=== PATIENT | female | born 1970 | race Caucasian/White ===

== ENCOUNTER 2016-08-29 00:42 | Inpatient (IN) | payer OTHER ==
[2016-08-29] VITALS (16 sets, daily range): BP systolic 88–122; BP diastolic 51–72; PULSE 85–109; RESP 10–21; O2SAT 91–100
[~2016-08-29] VITALS: Ht 160 cm; Wt 70.8 kg
--- NOTE | 2016-08-29 01:04 | ED.REPORT ---
HPI-NVD Date of Service Aug 29, 2016 ED Provider: Dr. Logan Herrera MD A 46 year old female presents to the ED complaining of weakness that began one week ago. Associated symptoms include nausea, vomiting, left ear pressure, fatigue, subjective fever, diaphoresis, chills, diarrhea, myalgias, chest soreness, bilateral arm soreness, mild dyspnea and general malaise. Patient recently noticed a sore on her left breast that recently began to exhibit drainage. Her symptoms have become increasingly worse since onset. She denies dysuria. Patient denies history of MRSA, breast abnormalities or skin infections. Nursing Notes Stated Complaint: NAUSEA,FATIGUE,STOMACH PAINS Chief Complaint: Female Abdominal Pain Nursing Notes Reviewed: Yes ([employer] not reconciled) Allergies: Coded Allergies: No Known Allergies (Unverified , 08/29/16) General Time Seen by MD: 01:03 Chief Complaint Vomiting Hx Obtained From: Patient Arrived By: Walk-in Onset Occurred: 1 week ago Symptom Duration: Since onset Associated with: Reports: Fever (Subjective) Pertinent Negative: Pt denies other symptoms Recent Healthcare: No recent doctor visit, No recent hospitalization Past Medical History Past Medical History Notes: No PCP Past Medical History None reported. Past Surgical History None reported. Family History Denies: Cancer (Denies hx of breast cancer) Smoking History Current Every Day Smoker Social History Alcohol Use: "Social" Drug Use: Denies drug use Other Social History: Local resident Ambulatory Status Independent Review of Systems Constitutional: Reports: Chills, Fatigue, Fever, Malaise, Weakness - generalized, Denies: Recent wt loss (Not significant loss in past 3 months ) Ears / Nose / Throat: Reports: Earache left GI: Reports: Nausea, Vomiting Neurologic: Reports: Weakness, Denies: Change LOC Complete sys rev & neg: except as marked. Respiratory: Reports: Dyspnea on exertion, Denies: Shortness of breath Cardiovascular: Reports: Chest pain Female: Denies: Dysuria Musculoskeletal: Reports: Extremity pain (Bilateral arm soreness), Myalgia Physical Exam Initial Vital Signs Vital Signs (First) Date Time Temp Pulse Resp B/P Pulse Ox O2 Delivery O2 Flow Rate FiO2 08/29/16 00:47 36.4 109 16 118/72 96 Room Air Initial VS: Reviewed, Vital signs abnormal (tachy) Head / Eyes: Atraumatic, Normocephalic, PERRL Extremities: Vascular intact, Neuro intact, No swelling, No tenderness General/Constitutional: Awake, Alert GENERAL: Patient appears weak and fatigued Abdomen: Atraumatic, Soft, Non-tender ENT: Atraumatic, Airway patent Mouth: Positive: Mucous membranes dry Respiratory / Chest: Atraumatic, Breath sounds NL, Breath sounds = bilat, No crepitus CHEST: Left breast tender Cardiovascular: Regular rhythm, Heart sounds NL Heart Rate / Rhythm: Positive: Tachycardia Heart Sounds / Murmur: Negative: Murmur present... Skin: Atraumatic SKIN: area of open wound on the right breast (4cm) left breast is swollen, tender, erythematous with multiple bulla and areas of necrosis Purulent discharge with a foul smell No appreciated fluctuance but area is difficult without induration Differential diagnosis includes severe soft tissue infection versus infection. Interpretation & Diagnostics BREAST US Read by [facility] Radiology Mastitis versus inflammatory carcinoma in the right clinical setting. Mammographic correlation advised. No discrete loculated fluid collection or abscess seen. An irregular hypoechoic lesion noted on image 19, somewhat suspicious. Lab Results Interpretation Result Diagram: 08/29/16 0120 08/29/16 0120 Test 08/29/16 01:20 White Blood Count 23.8th/mm3 (3.8-10.1) Red Blood Count 4.09mil/mm3 (3.90-5.20) Hemoglobin 11.9g/dL (12.0-15.6) Hematocrit 33.6% (35.0-46.0) Mean Corpuscular Volume 82.2fL (81-100) Mean Corpuscular Hemoglobin 29.1pg (27.0-35.0) Mean Corpuscular Hemoglobin Concent 35.4% (32.0-37.0) Red Cell Distribution Width 13.3% (12.3-15.4) Platelet Count 319bil/L (150-400) Neutrophils (%) (Auto) 85% (40-74) Lymphocytes (%) (Auto) 6% (14-46) Monocytes (%) (Auto) 4% (4-12) Eosinophils (%) (Auto) 1% (0-5) Basophils (%) (Auto) 0% (0-3) Band Neutrophils % 4% (1-5) Sodium Level 131mEq/L (134-144) Potassium Level 4.9mEq/L (3.5-5.2) Chloride Level 91mEq/L (97-108) Carbon Dioxide Level 18mmol/L (18-29) Blood Urea Nitrogen 99mg/dL (6-24) Creatinine 5.87mg/dL (0.57-1.00) Estimat Glomerular Filtration Rate 11mL/min (>59) Glucose Level 116mg/dL (60-99) Lactic Acid Level 1.5mmol/L (0.4-2.0) Calcium Level 9.0mg/dL (8.5-10.1) Total Bilirubin 1.0mg/dL (0.0-1.2) Aspartate Amino Transf (AST/SGOT) 27U/L (0-50) Alanine Aminotransferase (ALT/SGPT) 23U/L (0-32) Alkaline Phosphatase 274U/L (25-150) Total Protein 7.4g/dL (6.4-8.4) Albumin 2.5g/dL (3.4-5.0) Lipase 89U/L (13-60) Human Chorionic Gonadotropin, Qual Negative (Negative) Lab Results Interpretation: CBC-severe leukocytosis CMP trace hyponatremia, severely elevated BUN/creatinine creatinine indicative of renal failure, potassium is normal, CO2 is normal, glucose is normal, alkaline phosphatase is elevated but other LFTs are normal Lactic acid is normal Wound culture from purulent material from left breast is pending Blood cultures 2 is pending is negative Albumen is low Lipase is marginally above the top limit of normal, but is nowhere near the threshold for pancreatitis ECG Interpretation ECG Interpretation: Normal sinus rhythm rate of 88, no acute ischemic changes, no findings of hyperkalemia Time: 03:23 Interpreted by: ED physician X-Ray Chest Interpretation Chest Xray Interpretation: IMPRESSION: Imaging limited No evidence of subcutaneous infection Interpretation / Wet Read by: Wet read ED physician CT Abd / Pelvis Interpretation IMPRESSION: Left breast tissues enlarged and edematous with irregular skin thickening and relative increase fibroglandular tissue. Nodular area noted in the interferomedial left breast. 1.5 cm on image 37/2 equivocal. No associated adenopathy. Small pleural effusions. Study type: Abdominal CT no contrast Interpretation / Wet Read by: Interpret - Radiologist Re-Eval/Medical Decision Med Decision/Clinical Course This is a 46-year-old female who denies any past medical history or active medications presented with a chief complaint of "feeling lousy" and having some nausea and vomiting, and having her left ear plugged. However in the triage room and was noted there was a foul smell, and drainage seem to be present from left breast, and on exam there was "concerns for a large soft tissue infection. She reports that this is been draining at her breast is been this way for the past week. She reports some pain, but again did not even complain out of it, and certainly does not have pain out of proportion. (Just the opposite, she has almost a sense of a neglect, or anosognosia.). She reports mild weight loss over sustained period time, but then denies significant weight loss in recent months. She denies grant fever. She reports loss of appetite. She reports a trace sense of some shortness of breath, although she is not visibly dyspneic, tachypnea, or hypoxic. On exam the patient appears completely exhausted and significantly ill. Mucous membranes seem dry, she is mildly cachectic. On exam the left breast is weeping fluid through multiple open wounds and is profoundly foul smelling. The entire breast is erythematous, there are bulla, and areas of possible necrosis. However there is no gross fluctuance to indicate clinically evident abscess, and no crepitus, and no pain up out of proportion. There is also not tenderness outside of the area of clear skin involvement. There is a 2-3 cm open wound on the right breast as well, but there is full involvement of almost the entire left breast. A wound culture was taken from some purulent drainage from the breast. The lungs are clear. She is mildly tachycardic, but I do not appreciate any murmurs. The abdomen is entirely soft and nontender. There is no edema or anasarca clinically evident. Overall this is a clinically ill patient who presents with surprisingly nonspecific complaints given the extensive tissue destruction that she is aware of the left breast, and it is quite dramatic on exam. The differential is extensive. Clinically there appears to be a component of soft tissue infection. The patient adamantly denies substance use, history o injection. She reports she does smoke, but states rare alcohol and no recreational drugs. The first concern is what appears to be a soft tissue infection. Given the extensive skin involvement, and the overall appearance of being moderately ill, aggressive antibiotics were initiated with soft tissue sepsis protocol-including clindamycin, meropenem, and vancomycin. The patient complained of some nausea, but again did not complain of any significant pain-but agreed to some pain medicine saying she does have some, when I offered. An ultrasound was performed, and reveals inflammatory changes consistent with infection, but no discrete abscess or drainable fluid collection. Labs and may reveal a severe leukocytosis, but also notable for severe renal failure. Given the patient's nausea fatigue, and the kind of semi-neglect or seeming lack of awareness regarding the severity of the breast infection, I suspect a component of uremia. She is not hyperkalemic. The tissue destruction evident on breast exam raise the question of necrotizing fasciitis-although again they are significant features that are very atypical- the patient reports this process has been in place for at least a week, slightly longer. This is perhaps the strongest argument against necrotizing fasciitis. There is no gas, there is no pain out of proportion. However, given the clinical exam findings, I did consult general surgery and the case discussed with Dr. Vazquez. He will follow the patient. He agrees with antibiotic coverage, and agrees with CT imaging given that malignancy is also highly in the differential. Given the renal failure, noncontrast CT imaging the chest abdomen and pelvis is then obtained. The patient is being admitted to the hospital. Nephrology consult is also being requested. Source of Hx: Old records (none in EMR) Re-Evaluation/Progress #1: Time of Eval: 01:12 Patient Status: Condition improved Re-Evaluation/Progress Note: Patient is rechecked. She is informed of the current treatment plan to obtain CT and US of her breast. Re-Evaluation/Progress #2: Time of Eval: 03:48 Patient Status: Condition improved Re-Evaluation/Progress Note: Patient is rechecked. She is informed of her lab results, US results and diagnosis. All questions are addressed. She understands and agrees with the treatment plan to admit. Consultation #1: Referral / Consult Name: Jory Enamorado DO Consulted With: Hospitalist Call Returned at: 03:41 Clin Nurse: Will see patient, Agrees with eval, Agrees with plan, Accepts admit Consultation #2: Referral / Consult Name: Marcel Vazquez MD Consulted With: Surgeon Call Returned at: 02:34 Clin Nurse: Agrees with eval, Agrees with plan Note: Dr. Vazquez agrees with plan to continue antibiotic treatment and plan to obtain a CT. Consultation #3: Referral / Consult Name: Martin Stroud DO Consulted With: Nephrology Call Returned at: 03:31 Clin Nurse: Agrees with armando, Agrees with plan Counseled Regarding: Diagnosis, Lab results, Need for admission Discharge & Departure Impression: Primary Impression: Infection of breast tissue Additional Impressions: Sepsis affecting skin Renal failure Disposition: ADMITTED TO HOSPITAL Discharge Condition All VS Reviewed: Yes Condition: Stable Referrals: NOPCP Crit Care Except Billable Proc Time Spent: 30-74 minutes Services Performed: Patient management by me, Time spent at bedside, Reviewing test results, Reviewing imaging, Discussing patient care, Documentation in record Scribe Attestation Portions of this note were transcribed by Mahnaz Boucher. I, Dr. Herrera personally performed the history, physical exam and medical decision-making; I reviewed and confirmed the accuracy of the information in the transcribed note. Signed by: Lashanda Garay, 08/29/16 0400. Logan Herrera MD Aug 29, 2016 01:04 MAHNAZ BOUCHER Aug 29, 2016 01:19
[2016-08-29] MEDS ORDERED: Vancomycin Dose per Pharmacist XX ONE ×2 (01:15→04:00)
[2016-08-29] MEDS ORDERED: Clindamycin Inj 900 MG in IV Premix 1 EACH IV ONE (01:15)
[2016-08-29] MEDS ORDERED: 0.9% Sodium Chloride 1,000 ML IV ONE (01:15)
[2016-08-29] MEDS ORDERED: Meropenem Inj 1,000 MG in 0.9% Sodium Chloride 100 ML IV ONE (01:15)
[2016-08-29] MEDS ORDERED: Ondansetron 2 mg/mL 2 mL Inj IVPUSH ONE (01:15)
[2016-08-29] MEDS ORDERED: TdaP Vaccine 0.5 mL Inj IM ONE (01:15)
[2016-08-29] MEDS: HYDROmorphone 0.5 mg/0.5 mL iSecure Syringe IVPUSH PRN ×4 (01:40→23:42)
[2016-08-29 01:47] LABS: Mean Corpuscular Hemoglobin 29.1 pg (27.0-35.0); Mean Corpuscular Volume 82.2 fL (81-100); Platelet Count 319 bil/L (150-400)
[2016-08-29 02:10] LABS: NEUTROPHILS % (AUTO) 85 % (40-74)
[2016-08-29 02:11] LABS: BASOPHILS % (AUTO) 0 % (0-3); EOSINOPHILS % (AUTO) 1 % (0-5); MONOCYTES % (AUTO) 4 % (4-12)
[2016-08-29] MEDS ORDERED: 0.9% Sodium Chloride 500 ML ONE (02:20)
[2016-08-29 02:26] LABS: Lipase 89 U/L (13-60)
[2016-08-29] MEDS ORDERED: Alum-Mag Hydrox-Simeth 30 mL Suspension PO PRN (03:50)
[2016-08-29] MEDS ORDERED: Ondansetron 2 mg/mL 2 mL Inj IVPUSH PRN ×3 (03:50→17:40)
[2016-08-29] MEDS ORDERED: Polyethylene Glycol (PEG) 17 Gm Powder PO PRN (04:00)
[2016-08-29] MEDS: 0.9% Sodium Chloride 1,000 ML IV SCH ×5 (04:03→23:36)
[2016-08-29 04:26] LABS: APPEARANCE,URINE HAZY (CLEAR,HAZY); COLOR,URINE DARK YELLOW (YELLOW); OCCULT BLOOD,URINE SMALL (NEGATIVE); PH,URINE 5.5 (5.0-8.0)
[2016-08-29 04:27] LABS: UROBILINOGEN,URINE NORMAL (NORMAL)
--- NOTE | 2016-08-29 05:51 | PCM.HPMED ---
Subjective Date of Service Aug 29, 2016 Primary Provider: Admitting Physician: Jory Enamorado DO Primary Care Physician: Chanel Attending Physician: Jory Enamorado DO Chief Complaint: Bilateral breast with wounds, nausea, fatigue History of Present Illness: Patient is a 46-year-old female with no reported significant past medical history presenting with a host of non-specific symptoms including chills, nausea , emesis, fatigue, sore throat and myalgias. Patient says the symptoms started several days ago and persisted. She felt worse today which prompted her to visit [facility] ED for further evaluation. In the ED, the patient was found to have significant soft tissue infection of the left breast with purulent and malodorous discharge. The patient reports the breast only started being painful and draining over the past few days. She reportedly did not notice any abnormalities prior. Her right breast also have a couple of open wounds but significantly less severe compared to the left. The patient endorses associated chest wall pain, headache, weakness, nausea, emesis, mild shortness of breath, and fatigue but otherwise denies diarrhea, constipation, dysuria, abdominal pain. The patient was also discovered to have lesions on her thighs bilaterally. The patient denies any illicit drug use or IV drug use. An ultrasound was performed and reveals inflammatory changes consistent with infection, but no discrete abscess or drainable fluid collection. CT chest, abdomen and pelvis shows edematous and enlarged left breast tissue with irregular skin thickening and increase fibroglandular tissue. The patient was started on meropenem, clindamycin and vancomycin in the ED. In the ED, vitals: temp 36.4, HR 109, RR 16 satting 96% on room air, BP 118/72. Notable labs: WBC 23.8, BUN 94, creatinine 5.87, alkaline phosphatase 274. Review of Systems: A comprehensive review of systems was conducted with the patient and found to be negative except as above in the History of Present Illness. Allergies Coded Allergies: No Known Allergies (Unverified , 08/29/16) Home Medications None reported PMH None reported Surgical History None reported Family History Mother and father both alive and well with unspecified arthropathy . 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 Hx Alcohol Use: Yes (OCCAS) Hx Substance Use: No Hx Tobacco Use: Yes Smoking Status: Current Every Day Smoker (Smokes 1PPD x 25 years) Exam Vital Signs Vital Sign - Last Date Time Temp Pulse Resp B/P Pulse Ox O2 Delivery O2 Flow Rate FiO2 08/29/16 03:43 97 Nasal Cannula 2 08/29/16 03:38 36.6 88 15 104/61 Intake and Output 08/28/16 08/28/16 08/29/16 Cumulative From/Thru 15:00 23:00 07:00 08/29/16 00:47 - 08/29/16 01:42 Intake Total 1000 ml 1000 ml Balance 1000 ml 1000 ml Intake IV Total 1000 ml 1000 ml Exam General: No acute distress, well-developed, well-nourished, appropriately interactive HEENT: Normocephalic, atraumatic. External ears without defect. Pupils equal, round, and reactive to light. Anicteric sclerae, moist conjunctivae, and no lid lag. Oropharynx free of erythema and cobble stoning. Mucosa pink but dry. Neck: Supple. No lymphadenopathy or thyromegaly. Cardiovascular: Regular rate and rhythm with no murmurs, rubs, or gallops appreciated Pulmonary: Clear to auscultation bilaterally with no crackles, wheezes, or rhonchi. Normal respiratory effort with no use of accessory muscles. Abdomen: Bowel tones present. Soft, nontender, nondistended. No hepatosplenomegaly or masses appreciated. Extremities: No clubbing, cyanosis, edema, or lymphadenopathy appreciated. Skin: Left breast with malodorous purulent discharge, erythema and areas of necrosis. Right breast with two erythematous, open wounds about 2-3cm; no palpable fluctuance. Bilateral thighs with erythematous, open wounds. Normal temperature, turgor, and texture. Neurological: Cranial nerves grossly intact. Psychiatric: Emotional. Alert and oriented to person, place, and time. Lab and Diagnostics Result Diagram: 08/29/16 0120 08/29/16 0120 X-Rays, CTs and MRIs Ultrasound breast - left Exam date: 08/29/2016 Impression: Mastitis vs inflammatory carcinoma in the right clinical setting. Mammographic correlation advised. No discrete loculated fluid collection or abscess seen. An irregular hypoechoic lesion noted on image 19, somewhat suspicious Radiologist: Yancy Lawrence MD ----- CT Chest abdomen and pelvis without IV contrast Exam date: 08/29/2016 Impression: Left breast tissues enlarged and edematous with irregular skin thickening and relative increase fibroglandular tissue. Nodular area noted in the inferomedial left breast, 1.5 cm on image 37/2, equivocal. No associated adenopathy. Small pleural effusions. Radiologist: Yancy Lawrence MD Assessment & Plan Patient is a 46-year-old female with no reported significant past medical history presenting with a host of non-specific symptoms including chills, nausea , emesis, fatigue, sore throat and myalgias. 1. Severe Sepsis. Present on admission. Active -Meets criteria with WBC (23.8), HR (109) with source of infection (bilateral breast) and evidence of organ dysfunction (creatinine 5.87) 2. Bilateral breast lesions. Present on admission. Active -Concerning for malignancy and infection -Cultures pending -Continue clindamycin, meropenem and vancomycin -Surgery to see patient -Will need ID consultation -Pain control with Tylenol, hydromorphone PRN 3. Acute kidney injury with uremia and likely encephalopathy. Present on admission. Active -BUN 99, Creatinine 5.8 -CT without evidence of obstruction -Uncertain etiology. Possibly multifactorial - decreased intake, sepsis -Avoid nephrotoxins -Nephrology to see patient 4. Elevated alkaline phosphatase, unknown acuity. Present on admission. Active -Uncertain etiology. Possibly gallbladder, if breast cancer present then concern for bone metastasis -CT chest, abdomen and pelvis reads "borderline right-sided hypodensity" of the liver; mild gallbladder distention -TSH, GGT pending -Follow with CMP 5. Bilateral thigh lesions. Present on admission. Active -Patient believes these are from shaving -Wound care Patient Status: Patient is admitted under inpatient status with expected length of stay greater than 2 midnights due to severity of presenting symptoms, risk of adverse event, and complexity of treatment plan. VTE Prophylaxis: SCDs Resuscitation Status: CPR: Attempt Resuscitation EdieJamel DO Aug 29, 2016 04:29
--- NOTE | 2016-08-29 06:31 | NUR ---
NEW ADMIT Pt sent up from ED with large left breast wound, sepsis, and acute kidney failure. Pt WBC 23.8, BUN 99, Creatinine 5.87. Vitals stable with BP 118/72, HR 109, SPO2 96% 2L NC due to IV Dilaudid causing her to desat, otherwise RA mid-high 90's. Pt stated a pain of 7/10 pain for the left breast, which is red, swollen, and weeping purulent drainage. Pt has no PMH. Pt has NS running @ 150ml/hr. Admission questions answered by pt. assessed wound to breast and pt is resting and waiting for more information.
[2016-08-29] MEDS: Sodium Chloride LOK Flush 10 mL Syringe IVFLUSH SCH ×2 (07:56→14:59)
[2016-08-29] MEDS ORDERED: fentaNYL-PF 50 mCg/mL 2 mL Inj ONE ×2 (09:13→17:20)
--- NOTE | 2016-08-29 09:22 | DRSVH ---
PROCEDURE: US BREAST COMPLETE, LEFT INDICATIONS: redness, swelling, wounds ?abscess TECHNIQUE: Real-time focused scanning was performed of the left breast, with image documentation. COMPARISON: None. FINDINGS: Edema present throughout the left breast and dilated ducts are noted. No abscess is seen. IMPRESSION: Soft tissue edema and skin thickening with dilated and indistinct ducts noted containing hypoechoic fluid with low level echoes suggestive of mastitis. Differential diagnosis include inflamm atory breast carcinoma. No abscess is seen. Note: These findings are concordant with the preliminary interpretation. Dictated by: Lisandro Sandhu Josh Interpreted: Beronica Tijerina MD on 08/29/2016 at 9:20 Transcribed by: LAYLA on 08/29/2016 at 9:22 Approved by: Beronica Tijerina M.D. on 08/29/2016 at 9:48
--- NOTE | 2016-08-29 09:23 | DRSVH ---
PROCEDURE: X-RAY CHEST ONE VIEW, PORTABLE ([id number]) INDICATIONS: CP TECHNIQUE: One view of the chest was acquired. COMPARISON: [facility], CT, CT CHEST ABD PELVIS WO CON, 08/29/2016, 3:15. FINDINGS: Surgical changes and devices: None. Lungs and pleura: No pleural effusions or pneumothorax. Air space opacity involves the left lung ba se.. Mediastinum: Mediastinal contours appear normal. Heart size is normal. Bones and chest wall: No suspicious bony lesions. Overlying soft tissues appear unremarkable. IMPRESSION: Left basilar atelectasis versus aspiration or pneumonia. Dictated by: Lisandro Sandhu RRA Interpreted: Beronica Tijerina MD on 08/29/2016 at 9:22 Transcribed by: LAYLA on 08/29/2016 at 9:23 Approved by: Beronica Tijerina M.D. on 08/29/2016 at 9:49
--- NOTE | 2016-08-29 09:41 | DRSVH ---
PROCEDURE: CT CHEST, ABDOMEN AND PELVIS WITHOUT CONTRAST ([id number]) INDICATIONS: Sepsis, left breast infection vs mass. TECHNIQUE: After the administration of oral contrast, 5 mm thick sections acquired from the lung apices to the s ymphysis pubis. 5 mm thick coronal and sagittal reformats acquired, with additional 7 mm coronal MIP reformats through the lungs. For radiation dose reduction, the following was used: automated expos ure control, adjustment of mA and/or kV according to patient size. COMPARISON: [facility], , US BREAST COMP LT, 08/29/2016, 2:32. FINDINGS: Image quality: Excellent. CHEST: Lungs and pleura: No acute pulmonary opacities. Trace right pleural effusion. Bibasilar atelectasis. No pneumothorax. Central and peripheral airways are patent are normal in caliber. Mediastinum: Heart size is normal. No pericardial effusion. No mediastinal adenopathy by CT size c riteria. Thoracic aorta and central pulmonary arteries are normal in size. Esophagus is normal in c aliber. No hiatal hernia. Chest wall: There is diffuse soft tissue edema skin thickening in the left breast and. No axillary o r supraclavicular adenopathy by size criteria. There is a 1 cm nodule in the right thyroid lobe. ABDOMEN: Solid organs: Liver and spleen are normal in size. Gallbladder is distended. Possible small gallsto diogo within the dependent gallbladder lumen. Pancreas is normal in contours. No adrenal nodules. Chaka th kidneys are normal in size, without hydronephrosis or nephrolithiasis. Peritoneum and bowel: Small and large bowel loops are normal in caliber and wall thickness. No free fluid or air. Nodes and vessels: No retroperitoneal or mesenteric adenopathy by size criteria. Aorta and inferior vena cava are normal in size. Miscellaneous: No ventral hernias. PELVIS: Genitourinary: Bladder wall thickness is normal. There is a 1 cm lucency in the lower uterine segme nt/cervix, probably a nabothian cyst. Ovaries are unremarkable. No pathological free fluid. Miscellaneous: No inguinal hernias or adenopathy. Bones: No suspicious bony lesions. No vertebral body compression fractures. IMPRESSION: 1. There is diffuse soft tissue edema and skin thickening of the left breast. Differential diagnosis include inflammatory breast cancer versus mastitis. Recommend clinical correlation follow. 2. Trace right pleural effusion. Bibasilar atelectasis. 3. A 1 cm right thyroid nodule. Recommend ultrasound followup. 4. ? Small gallstones. 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 Dictated by: Beronica Tijerina M.D. on 08/29/2016 at 9:30 Approved by: Beronica Tijerina M.D. on 08/29/2016 at 9:39
[2016-08-29] MEDS ORDERED: Clindamycin Inj 600 MG in IV Premix 1 EACH IV SCH (10:00)
[2016-08-29] MEDS ORDERED: DAPTOmycin Inj 500 MG in 0.9% Sodium Chloride 50 ML IV ONE (12:55)
[2016-08-29] MEDS: Meropenem Inj 1,000 MG in 0.9% Sodium Chloride 50 ML IV SCH ×2 (14:59→16:15)
[2016-08-29] MEDS ORDERED: Lactated Ringer's 1,000 ML IV ONE ×2 (16:04→17:53)
--- NOTE | 2016-08-29 16:04 | PCM.HPANE ---
Patient Data Surgeon Admitting Provider:Jory Enamorado DO Attending Provider:Jory Enamorado DO Primary Care Physician:Chanel Other Provider:Emilia Draper Anesthesia Reason for Visit Rt Breast Cellulitis,Sepsis, Nausea, Vomiting Ht/WT & BMI Height (Feet): 5 Height (Inches): 3.00 Weight (Kilograms): 70.800 Body Mass Index 0.00 Allergies Coded Allergies: No Known Allergies (Unverified , 08/29/16) Past Anesthesia History Anesthesia History: Denies:: Anesthesia Reactions Diabetes History Hx Diabetes?: No Current Bedside Blood Glucose: 70 MRSA MRSA: No Medications No Active Prescriptions or Reported Meds History History of ENT Problems?: No Hx of Heart Problems?: No Cardiovascular History: Denies:: Congestive Heart Failure Hypertension Hx of Respiratory Problem?: No Respiratory History: Denies:: Tuberculosis Hx Neurologic Problems?: No Hx of GI Problems?: No Hx of Problems?: No Female Hx: Positive for:: Problems with Breasts? (Wound to left breast) Denies:: Currently Hx Musculoskeletal Problems?: No Hx of Psycho/Social Problems?: Yes Psycho Social History: Positive for:: Anxiety Hx Depression Denies:: Bipolar Disorder Suicide Attempt Hx Surgeries?: No Hx Any Other Health Problems?: No Other History: Denies:: Cancer Hospitalization Thyroid Disease History Blood Transfusions: Positive for:: Accept Blood Products? 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 Category 1B: Patient has history of documented sleep apnea, and HAS received any narcotic , sedative or anesthesia administration during this stay Category 2: Patient has SUSPECTED Obstructive Sleep Apnea, and HAS received any narcotic , sedative or anesthesia administration during this stay. Category 3: Patient has SUSPECTED Obstructive Sleep Apnea and HAS NOT received narcotic, sedative or anesthesia administration during this stay. Category 4: Outpatient in Procedural Areas with known sleep apnea or who screen positive for High Risk via the STOP/BANG questionnaire. Exam Exam Vital Signs Vital Signs Date Time Temp Pulse Resp B/P Pulse Ox O2 Delivery O2 Flow Rate FiO2 08/29/16 14:10 37.8 102 16 88/51 92 Room Air 08/29/16 12:05 103 08/29/16 08:07 37.6 87 14 122/68 96 Room Air General Appearance: Alert, Oriented X3, Cooperative, No Acute Distress HEENT/AIRWAY: MP 2 Lungs: Clear to Auscultation, Normal Air Movement Heart: Exam Unremarkable, Regular Rate/Rhythm, No Murmurs/Rubs/Gallops Meds/Labs/Diagnostics Admission Meds Current Medications Sodium Chloride (Normal Saline) 1,000 ml @ 0 mls/hr Q0M ONCE IV Last administered on 08/29/16 01:39; Start 08/29/16 at 01:15; Stop 08/29/16 at 01:18; Status DC Ondansetron HCl (Zofran Inj) 8 mg ONCE ONCE IVPUSH Last administered on 01:39; Start 08/29/16 at 01:15; Stop 08/29/16 at 01:18; Status DC Pharmacy Consult 1 ea 1 ea ONCE ONCE XX Last administered on 08/29/16 02:48; Start 08/29/16 at 01:15; Stop 08/29/16 at 12:36; Status DC Clindamycin Phosphate/ Dextrose 900 mg/ Premix 50 ml @ 100 mls/hr ONCE ONCE IV Last administered on 08/29/16 01:15; Start 08/29/16 at 01:15; Stop 08/29/16 at 01:44; Status DC Meropenem 1000 mg/ Sodium Chloride 100 ml @ 200 mls/hr ONCE ONCE IV Last administered on 08/29/16 01:55; Start 08/29/16 at 01:15; Stop 08/29/16 at 01:44; Status DC Vancomycin HCl 1250 mg/Dextrose/ Water 250 ml @ 166.667 mls/hr ONCE ONCE IV Last administered on 08/29/16 02:40; Start 08/29/16 at 01:25; Stop 08/29/16 at 12: 36; Status DC Sodium Chloride 500 ml @ STK-MED ONCE .ROUTE Last administered on 08/29/16 02:33; Start 08/29/16 at 02:20; Stop 08/29/16 at 02:22; Status DC Sodium Chloride 1,000 ml @ 150 mls/hr Q6H40M IV Last administered on 08/29/16 10:40; Start 08/29/16 at 03:50; Stop 08/29/16 at 11:01; Status DC Meropenem 1000 mg/ Sodium Chloride 50 ml @ 16.667 mls/ hr DAILY IV Last administered on 08/29/16 14:59; Start 08/29/16 at 14:00 Clindamycin Phosphate/ Dextrose 600 mg/ Premix 50 ml @ 100 mls/hr Q8H IV Last administered on 08/29/16 10:41; Start 08/29/16 at 10:00; Stop 08/29/16 at 12:36; Status DC Daptomycin/Sodium Chloride (Cubicin Inj/ Normal Saline) 50.02 ml @ 100.04 mls/ hr ONCE ONCE IV Last administered on 08/29/16 14:58; Start 08/29/16 at 12:55; Stop 08/29/16 at 13:25; Status DC Bedside Blood Glucose: 70 Labs Test 08/29/16 01:20 08/29/16 04:19 08/29/16 06:10 08/29/16 13:40 White Blood Count 23.8th/mm3 (3.8-10.1) Red Blood Count 4.09mil/mm3 (3.90-5.20) Hemoglobin 11.9g/dL (12.0-15.6) Hematocrit 33.6% (35.0-46.0) Mean Corpuscular Volume 82.2fL (81-100) Mean Corpuscular Hemoglobin 29.1pg (27.0-35.0) Mean Corpuscular Hemoglobin Concent 35.4% (32.0-37.0) Red Cell Distribution Width 13.3% (12.3-15.4) Platelet Count 319bil/L (150-400) Neutrophils (%) (Auto) 85% (40-74) Lymphocytes (%) (Auto) 6% (14-46) Monocytes (%) (Auto) 4% (4-12) Eosinophils (%) (Auto) 1% (0-5) Basophils (%) (Auto) 0% (0-3) Band Neutrophils % 4% (1-5) Lactic Acid Level 1.5mmol/L (0.4-2.0) Total Bilirubin 1.0mg/dL (0.0-1.2) Aspartate Amino Transf (AST/SGOT) 27U/L (0-50) Alanine Aminotransferase (ALT/SGPT) 23U/L (0-32) Alkaline Phosphatase 274U/L (25-150) Total Protein 7.4g/dL (6.4-8.4) Albumin 2.5g/dL (3.4-5.0) Lipase 89U/L (13-60) Procalcitonin 7.44ng/mL (0.00-0.08) Thyroid Stimulating Hormone (TSH) 1.020uIU/mL (0.450-4.500) Human Chorionic Gonadotropin, Qual Negative (Negative) Urine Color Dark yellow (YELLOW) Urine Appearance Hazy (CLEAR,HAZY) Urine pH 5.5 (5.0-8.0) Urine Specific [place] 1.015 (1.003-1.035) Urine Protein 30mg/dL (NEG,TRACE) Urine Glucose (UA) Negativemg/dL (NEGATIVE) Urine Ketones Negativemg/dL (NEGATIVE) Urine Occult Blood Small (NEGATIVE) Urine Nitrite Negative (NEGATIVE) Urine Bilirubin Negative (NEGATIVE) Urine Urobilinogen Normalmg/dL (NORMAL) Urine Leukocyte Esterase Negative (NEGATIVE) Urine RBC 3-10/hpf (0-2) Urine WBC 6-10/hpf (0-5) Urine Epithelial Cells Few/hpf (NONE-MOD) Urine Crystals Amorphous urates (NONE Urine Bacteria None/hpf (NONE-FEW) Urine Hyaline Casts None/lpf (NONE) Urine Granular Casts None seen (NONE SEEN) Urine Waxy Casts None seen (NONE SEEN) Urine Red Blood Cell Casts None seen (NONE SEEN) Urine White Blood Cell Casts None seen (NONE SEEN) Urine Mucus None seen (None Seen) Urine Trichomonas None seen (NONE SEEN) Urine Yeast None (NONE SEEN) Urine Culture Reflexed Indicated Urine Random Creatinine 77mg/dL (15-278) Urine Random Total Protein 41mg/dL (0-15) Urine Random Sodium 0.53mEq/L Urine Opiates Screen Negative Urine Methadone Screen Negative Urine Barbiturates Screen Negative Urine Amphetamines Screen Positive Urine Benzodiazepines Screen Negative Urine Cocaine Metabolite Screen Negative Urine Cannabinoids Screen Negative Sodium Level 136mEq/L (134-144) Potassium Level 5.0mEq/L (3.5-5.2) Chloride Level 99mEq/L (97-108) Carbon Dioxide Level 16mmol/L (18-29) Blood Urea Nitrogen 90mg/dL (6-24) Creatinine 4.49mg/dL (0.57-1.00) Estimat Glomerular Filtration Rate 15mL/min (>59) Glucose Level 74mg/dL (60-99) Calcium Level 7.4mg/dL (8.5-10.1) Plan Impression Patient chart reviewed, patient interviewed and anesthestic plan with risks, benefits, and alternatives discussed, and informed consent obtained. ASA Physical Status: ASA3 Plus Emergency Anesthetic Plan: GA Bene/Risks/Altern/Consents: Yes HP Complete Prior to Induction: Yes Logan Srinivasan MD Aug 29, 2016 16:04
--- NOTE | 2016-08-29 17:31 | CONS ---
[address] [address] CONSULTATION REPORT PATIENT: PITER ENGLE : 1970 MR#: [id number] ADMIT: 08/29/2016 JOB ID: [id number] DATE OF SERVICE: 08/29/2016 REQUESTED BY: Nadeem Irizarry D.O. HISTORY OF PRESENT ILLNESS: A 46-year-old female who presented with four areas of cutaneous and subcutaneous infection. She came to the emergency department last night. She had extensive cellulitis of her left breast with several areas draining pus. She had a left breast ultrasound that showed no distinct abscess, and then a CT scan of her chest, abdomen and pelvis without contrast. This showed diffuse soft tissue edema and thickening of the skin of her left breast. She also has this a small area with an eschar in her right breast and on both anterior thighs. She denies "popping" but certainly this is consistent with that. She also is an everyday smoker. In addition to her soft tissue infection, she has developed acute renal failure with a creatinine of 5.87. She has a white count of almost 24,000. Her lactic acid was 1.5. She has been started on clindamycin and meropenem. I was consulted for surgical management. PAST MEDICAL HISTORY: Illnesses: None reported. Operations: None reported. HABITS: She denies parenteral substance abuse. She admits to every day smoking a pack a day and occasional alcohol. REVIEW OF SYSTEMS: Severe left breast pain. PHYSICAL EXAMINATION: Middle-age female, appearing very frightened but no distress. Temperature is 37.6, brachial blood pressure 122/68, pulse 87, respiratory rate 16, O2 sat on 2 L is 96%. HEENT: PERRLA. EOMI. No scleral icterus. Neck: No masses. Lymph nodes: I did not palpate any cervical or scalene adenopathy. Due to pain from her left breast, I was not able to examine her left axilla but will do so in the operating room. Left breast: She has significant desquamation and necrotic skin and subcutaneous tissue. The left breast is diffusely tender and erythematous. Because of the pain, I simply could not do what I consider an adequate exam. I do think that there are likely some sinus tracts extending into her breast. On her right breast, there is a small eschar without surrounding cellulitis. She has also eschars on her right and left anterior thighs without cellulitis. LABORATORY RESULTS: Please see history and physical examination. IMAGING STUDIES: Please see history and physical examination. RECOMMENDATIONS: I have recommended that we explore and debride her left breast in the operating room. I am certain I will do an incision and drainage and excisional debridement of skin and subcutaneous tissue. She is aware that resolution of this is likely to take many weeks. She is also aware she is likely to end up with deformity of her left breast. I think this is most likely infectious. I think it is not likely to be malignant, but I will send some tissue off for pathology as well. She agrees to proceed, and we will proceed today. Patient seen for decision to operate MTDD
[2016-08-29] MEDS ORDERED: Lactated Ringer's 1,000 ML IV SCH (17:37)
[2016-08-29] MEDS ORDERED: Lactated Ringer's 500 ML IV PRN (17:37)
[2016-08-29] MEDS ORDERED: MetoCLOpramide 5 mg/mL 2 mL Inj IVPUSH PRN (17:40)
[2016-08-29] MEDS ORDERED: hydrALAZINE 20 mg/mL Inj IVPUSH PRN (17:40)
[2016-08-29] MEDS ORDERED: Labetalol 5 mg/mL 4 mL Inj IV PRN (17:40)
[2016-08-29] MEDS ORDERED: Phenylephrine 10,000 mCg/mL Inj IVPUSH PRN (17:40)
[2016-08-29] MEDS ORDERED: EPHEDrine Sulfate 50 mg/mL Inj IVPUSH PRN (17:40)
[2016-08-29] MEDS ORDERED: Atropine 0.4 mg/mL Inj IVPUSH PRN (17:40)
[2016-08-29] MEDS ORDERED: HYDROmorphone 1 mg/mL Inj IVPUSH PRN (17:40)
[2016-08-29] MEDS ORDERED: fentaNYL-PF 50 mCg/mL 2 mL Inj IVPUSH PRN (17:40)
[2016-08-29] MEDS ORDERED: Dexamethasone 4 mg/mL Inj IVPUSH PRN (17:40)
--- NOTE | 2016-08-29 17:41 | PCM.ANEP1 ---
Post Anesthesia Phase 1 PACU Phase 1 Assessment Vital Signs Vital Signs Date Time Temp Pulse Resp B/P Pulse Ox O2 Delivery O2 Flow Rate FiO2 08/29/16 14:10 37.8 102 16 88/51 92 Room Air 08/29/16 12:05 103 Anesthetic Administered: GA Level of Alertness: Sleepy, easy to arouse HALL's with Equal Strength: Yes Pain: No Pain Scale Score: 0 Nausea or Vomiting: No Oxygen Delivery: Simple Mask Lungs: Clear to Auscultation, Normal Air Movement Dermatome Level: Full Sensation Logan Srinivasan MD Aug 29, 2016 17:41
--- NOTE | 2016-08-29 18:11 | PCM.ANEP2 ---
Post Anesthesia Evaluation ASA/CMS Post Anesthesia VS in Patient's Normal Range?: Yes Resp Stable; Airway Patent?: Yes CV Function & Hydration Stable: Yes Mental Status Recovered?: Yes Pain control Satisfactory?: Yes N/V Control Satisfactory?: Yes Logan Srinivasan MD Aug 29, 2016 18:11
--- NOTE | 2016-08-29 18:11 | PCM.PNMED ---
Subjective Date of Service Aug 29, 2016 Subjective Patient is a 46-year-old female with no reported significant past medical history presenting with a host of non-specific symptoms including chills, nausea , emesis, fatigue, sore throat and myalgias. In the ED, the patient was found to have significant soft tissue infection of the left breast with purulent and malodorous discharge. The patient reports the breast only started being painful and draining over the past few days. Today is hospital day 1. Today: She currently reports generalized aches and denies fever, chills, breast pain, nausea, vomiting, and abdominal pain. She has felt better since being admitted to the hospital. She states that she noticed a rash on her breasts 1 week ago and she thought that the rash was associated with a flu-like illness. She takes care of her disabled boyfriend who has a history of MRSA infections. 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 Exam Vital Signs Vital Sign - Last Date Time Temp Pulse Resp B/P Pulse Ox O2 Delivery O2 Flow Rate FiO2 08/29/16 12:05 103 08/29/16 08:07 37.6 14 122/68 96 Room Air 08/29/16 05:43 2.00 Intake and Output 08/28/16 08/28/16 08/29/16 Cumulative From/Thru 15:00 23:00 07:00 08/29/16 00:47 - 08/29/16 06:14 Intake Total 1608 ml 1608 ml Output Total 500 ml 500 ml Balance 1108 ml 1108 ml Intake Oral 0 ml 0 ml IV Total 1608 ml 1608 ml Output Urine Total 500 ml 500 ml Exam General: No acute distress, well-developed, well-nourished, appropriately interactive HEENT: Normocephalic, atraumatic. External ears without defect. Pupils equal, round, and reactive to light. Anicteric sclerae, moist conjunctivae, and no lid lag. Oropharynx free of erythema and cobble stoning. Mucosa pink but dry. Neck: Supple. No lymphadenopathy or thyromegaly. Cardiovascular: Regular rate and rhythm with no murmurs, rubs, or gallops appreciated Pulmonary: Clear to auscultation bilaterally with no crackles, wheezes, or rhonchi. Normal respiratory effort with no use of accessory muscles. Abdomen: Bowel tones present. Soft, nontender, nondistended. No hepatosplenomegaly or masses appreciated. Extremities: No clubbing, cyanosis, edema, or lymphadenopathy appreciated. Skin: Left breast with malodorous purulent discharge, diffuse erythema and areas of ulceration. Right breast with two erythematous, open wounds with eschars about 2-3cm; no palpable fluctuance. Bilateral thighs with symmetrical erythematous, open wounds with eschars about 3-4 cm; no palpable fluctuance. Normal temperature, turgor, and texture. Neurological: Cranial nerves grossly intact. Psychiatric: Emotional. Alert and oriented to person, place, and time. Genitourinary: Win catheter in place. IVs and Medications Medications Reviewed: Medications were reviewed in detail Lab and Diagnostics Result Diagram: 08/29/1611908/29/16 012 X-Rays, CTs and MRIs Ultrasound breast - left Exam date: 08/29/2016 Impression: Mastitis vs inflammatory carcinoma in the right clinical setting. Mammographic correlation advised. No discrete loculated fluid collection or abscess seen. An irregular hypoechoic lesion noted on image 19, somewhat suspicious Radiologist: Yancy Lawrence MD CT Chest abdomen and pelvis without IV contrast Exam date: 08/29/2016 Impression: Left breast tissues enlarged and edematous with irregular skin thickening and relative increase fibroglandular tissue. Nodular area noted in the inferomedial left breast, 1.5 cm on image 37/2, equivocal. No associated adenopathy. Small pleural effusions. Radiologist: Yancy Lawrence MD PROCEDURE: CT CHEST, ABDOMEN AND PELVIS WITHOUT CONTRAST IMPRESSION: 1. There is diffuse soft tissue edema and skin thickening of the left breast. Differential diagnosis include inflammatory breast cancer versus mastitis. Recommend clinical correlation follow. 2. Trace right pleural effusion. Bibasilar atelectasis. 3. A 1 cm right thyroid nodule. Recommend ultrasound followup. 4. ? Small gallstones. No significant discrepancy with the cage shift manager radiology preliminary report. Dictated by: Beronica Tijerina M.D. on 08/29/2016 at 9:30 Approved by: Beronica Tijerina M.D. on 08/29/2016 at 9:39 PROCEDURE: X-RAY CHEST ONE VIEW, PORTABLE IMPRESSION: Left basilar atelectasis versus aspiration or pneumonia. Dictated by: Lisandro Sandhu RR Interpreted: Beronica Tijerina MD on 08/29/2016 at 9:22 Transcribed by: LAYLA on 08/29/2016 at 9:23 Approved by: Beronica Tijerina M.D. on 08/29/2016 at 9:49 Assessment & Plan Patient is a 46-year-old female with no reported significant past medical history presenting with a host of non-specific symptoms including chills, nausea , emesis, fatigue, sore throat and myalgias. Today is hospital day 1. 1. Severe Sepsis. Present on admission. Active -Met criteria with WBC (23.8), HR (109) with source of infection (bilateral breast) and evidence of organ dysfunction (creatinine 5.87) -Patient is febrile 37.8 degrees Celsius -Procalcitonin elevated at 7.44 -Urinalysis shows negative nitrite, negative leukocyte esterase, and 6-10 white blood cells, 3-10 red blood cells -Blood and urine cultures pending -Chest x-ray shows left basilar atelectasis, possible aspiration or pneumonia and CT report shows bibasilar atelectasis 2. Bilateral breast lesions. Present on admission. Active -Left breast ultrasound and chest, abdomen, and pelvis CT performed -Concerning for malignancy and infection or inflammatory breast disease -Initial culture result shows rare polys and few gram-positive cocci -Continue IV antibiotics of clindamycin, meropenem and daptomycin per infectious disease -Surgery consulted and following patient, their time and recommendations are appreciated. -Patient has surgery today for debridement of her breasts. -Infectious disease consulted and following patient, their time and recommendations are appreciated. -Patient's urine is positive for amphetamines but denies IV drug use -HIV and hepatitis C pending -MRSA screen pending -Pain control with Tylenol, hydromorphone PRN 3. Acute kidney injury with uremia and likely encephalopathy. Present on admission. Active -Initial BUN 99, Creatinine 5.8 with mild improvement to BUN 90, Creatinine 4.49 -CT without evidence of obstruction -Uncertain etiology. Possibly multifactorial - decreased intake and sepsis -Avoid nephrotoxins -Patient on normal saline IV fluids at rate of 150 mL/hour -Nephrology consulted and following patient, their time and recommendations are appreciated. 4. Elevated alkaline phosphatase, unknown acuity. Present on admission. Active -Uncertain etiology. Possibly gallbladder, if breast cancer present then concern for bone metastasis -CT chest, abdomen and pelvis reads "borderline right-sided hypodensity" of the liver; mild gallbladder distention and possible small gallstones -Patient currently denies abdominal pain, nausea, and vomiting. -GGT pending -TSH within normal limits -Follow with CMP -Continue to monitor and consider further workup such as possible abdominal ultrasound to further evaluate her gallbladder and liver 5. Bilateral thigh lesions. Present on admission. Active -Patient believes these are from shaving -Likely, related to patient's breast lesions. -Wound care consulted and following patient, their time and recommendations are appreciated. -Antibiotics as above -Infectious disease consulted and following patient, their time and recommendations are appreciate. 6. Bibasilar atelectasis. Present on admission. Active. -Left basilar atelectasis seen on chest x-ray and bibasilar atelectasis and trace right pleural effusion seen on chest CT scan -Patient is currently receiving IV antibiotics as above -Continue to monitor 7. Tobacco dependence -Patient refused nicotine patch Bowel regimen senna and MiraLAX scheduled and when necessary. Zofran when necessary for nausea and vomiting Patient Status: Patient is admitted under inpatient status with expected length of stay greater than 2 midnights due to severity of presenting symptoms, risk of adverse event, and complexity of treatment plan. Disposition: Likely here for greater than 2 midnights. Dependent upon improvement of severe sepsis and further evaluation of breast lesions. VTE Prophylaxis: SCDs Resuscitation Status: CPR: Attempt Resuscitation Attending Statement The patient was seen and examined together with Dr. Fields on 08/29/2016 and I agree with the history, exam and plan as outlined in the note above. . Glenny Fields DO Aug 29, 2016 13:18 Nadeem Espinal MD Aug 29, 2016 20:31
--- NOTE | 2016-08-29 18:11 | NUR ---
LOC/Post Surgery Patient alert and oriented x3 throughout shift (pre and post surgery), very lethargic and drowsy. Patient slept throughout entire shift, would wake to light touch/minor stimulation, reported 5/10 pain throughout shift in left breast. SPO2 on RA ranged from 92-95%. No reports of n/v/d/c or abdominal pain. Patient febrile at 37.8 this afternoon. Dressing reviewed with Andreas Garcia post surgery, C/D/I with sports bra in place. Patient reports current 2/[address] draining pale ngozi urine to gravity, 1200 cc out.
--- NOTE | 2016-08-29 18:29 | CONS ---
[address] [address] CONSULTATION REPORT PATIENT: PITER ENGLE : 1970 MR#: [id number] ADMIT: 08/29/2016 JOB ID: [id number] DATE OF SERVICE: 08/29/[address] Jamel Irizarry for this consult. REASON FOR CONSULTATION: Severe bilateral left greater than right breast infection. HISTORY OF PRESENT ILLNESS: The patient is a 46-year-old woman who lives with her disabled boyfriend in [place], [place]. She reports unusual history in that she said she was in her usual state of robust good health until just "a few days ago." At that point, she developed a "flu-like" illness characterized by fever, chills, headache, questionable sore throat, nausea, vomiting and diarrhea. As this flu-like illness progressed for a day or two, she noticed inflammation, redness, tenderness and pain in her left breast which rapidly became very extensive. Less severe lesions were seen on the right breast as well as on both thighs. She denies any autoinoculation with needles nor any trauma to any of these areas and especially the most involved left breast. Associated with this rapid deterioration in the situation with her left breast, she reports more fever, more chills, drainage and generalized weakness. The patient eventually was taken to the emergency department last night where she was found to have an extraordinary inflammation of the left breast in particular with almost complete involvement of the left breast with draining, purulent, malodorous discharge. She adamantly denies that this problem with her breasts and for that matter her thighs has been going on more than a few days. She denies having had any similar or preceding history of soft tissue infections. The patient was emergently admitted because of the extraordinary nature of these lesions, especially involving the left breast, and was started on antibiotics which included vancomycin, clindamycin and meropenem. The patient is currently scheduled for debridement of the left breast to be conducted this afternoon by Dr. Lott. I spent a considerable period of time trying to elicit more history from the patient as it would appear to me that the lesions on the breast and perhaps on the thighs are more longstanding than she describes, and they are also of such incredible severity I am surprised that she did not come in much sooner. The patient sticks to her guns, however, and says that until just "a few days ago" everything was fine until she got a flu-like illness which then seemed to set off infections in both breasts and both thighs. PAST MEDICAL HISTORY: None known. The patient denies any history of HIV, chronic hepatitis, diabetes or cancer. SOCIAL HISTORY: The patient lives in [place] with her boyfriend. She reports he is disabled and a paraplegic and she helps to take care of him. She uses alcohol occasionally and cigarettes on an every day basis. She said she smokes at least one pack a day of cigarettes, sometimes more, and has done this for her entire adult life. She adamantly denies substance abuse when asked about this a number of times. FAMILY HISTORY: Her parents are alive and well. She denies any family history of breast cancer in her mother or aunts. She also denies any family history of TB in any family members including her parents and siblings. REVIEW OF SYSTEMS: Was done but was difficult as the patient replies "a little bit" to almost all questions. She reports that she has a bit of a headache, a minor pain behind the eyes, a mild sore throat. She does deny sinusitis or trouble swallowing. She states that she has had very little to eat and drink the last few days because of this progressive infection. She says she has a little bit of a cough but is not short of breath. No chest pain. She has had some abdominal pain, she states, along with some mild nausea, occasional vomiting and occasional diarrhea. She also states she has had some degree of mild dysuria, but no urgency, or frequency and, in fact, her urine output seems to have dropped the last couple days, by her report. She has no swelling of the joints though she reports she has had diffuse myalgias and arthralgias the last three days. She states she has been able to walk without difficulty until the last couple of days when she really got a lot worse with respect to her breast and has been more less bedridden since that time. The remainder of the review of systems is negative or nonspecific responses were obtained. PHYSICAL EXAMINATION: Reveals a woman who is awake and able to answer questions but appears depressed and with an extraordinarily flat affect. She is in no acute distress though she is protecting her left breast from any possible attempts to exam it. Temperature is 37.6 at this time and that is the highest during her 24 hours or so here in the hospital. Pulse 103, respiratory rate 14, blood pressure 122/68. She is saturating well on room air. Her head is without trauma. Her sinuses nontender. Eyes are notable for bilateral hemorrhagic or erythematous conjunctivitis. No scleral icterus. Nose normal. Oral cavity cracked and dry mucous membranes, but no thrush or pharyngitis. No hairy leukoplakia. The neck is without adenopathy and very supple. Lungs are clear, although it is difficult to examine the, on the left because of the incredible inflammation in her left breast. Cardiac tones: Regular rate and rhythm without murmur. The abdomen is soft and relatively nontender. The liver extends a couple centimeters below the right costal margin. There is no flank tenderness. The breasts are abnormal. The right breast has two about quarter-sized dried sites of inflammation which almost have an eschar on top of an erythematous base. The left though is extraordinary. It is double normal size, erythematous, cracked and fissured and extraordinarily angry-looking. This seems to involve almost the entire breast though a little area along the top is spared. It is so erythematous, tender and warm that it is almost impossible to examine this grossly involved left breast. The patient's external genitalia normal. She has a Win catheter. There is no evidence for synovitis in any of her joints. Muscles seem well-developed and nontender. The patient has symmetrical lesions in the midthigh bilaterally which appear like the ones on the right breast in that they have an eschar crust on top of what appears to have been an inflammatory lesion which is subsiding. She has excellent pulses in her feet and is intact neurologically. She can move all four extremities. She is certainly alert and oriented and has no skin rash except for the involvement mentioned in both breasts and both thighs. No adenopathy is noted. LABORATORIES: Include white count 24,000 with left shift, 85% segs. Her creatinine is 5.87. We have no prior values available. Her BUN is essentially 100, glucose 116. ALT and AST are normal but the alk phos is 274. Lipase is 89, slightly elevated, and albumin 2.5. Procalcitonin 7.4. Urine test negative. Urinalysis 6-10 white cells. Gram stain of the breast shows rare polys and a few GPC's. Culture is pending. Blood cultures are negative. Urine screen is pending. MRSA screen pending. IMAGING: Includes a chest x-ray which shows left basilar atelectasis. Breast ultrasound was done which showed thickened skin and indistinct ducts on the left breast consistent with mastitis. A CT of the chest, abdomen, and pelvis was done which showed soft tissue edema and skin thickening of the breast, a trace right pleural effusion was noted with bibasilar atelectasis and a thyroid nodule. 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 She reports that just over a few days she has developed this tremendously inflammatory process involving primarily the left breast but also to some degree the right breast and both thighs. She states that she was completely fine up until this and is in no way immunosuppressed. She also denies use of any injections of any sort for a list of purposes. This whole case and history are very hard to put together. It would appear at this point at a minimum the patient has an extremely severe soft tissue infection which is primarily present in the left breast. The likely organisms here would, of course, include staph and strep and the possibility of a necrotizing group A strep cannot be excluded at this point. I wonder if, in fact, there is some history of drug use or perhaps some underlying immunosuppression though this was denied during the history-taking. Aggressive debridement as well as broad-spectrum antibiotics will be needed. Part of the antibiotic regimen will have to include clindamycin in case this is a group A strep process. Given her acute renal failure, which is likely part and parcel of this ongoing process, I would like to avoid the use of vancomycin and will stop it and substitute daptomycin. Meropenem could be continued as broad-spectrum coverage for what is clearly a necrotizing soft tissue infection until we have a definitive diagnosis. RECOMMENDATIONS: 1. I have ordered a urine tox screen, HIV and hepatitis C. 2. I have also ordered an ASO titer. 3. We will drop the vancomycin and substitute daptomycin at a renally adjusted dose. 4. Will continue with renally adjusted meropenem. 5. I have increased the dose of clindamycin to 900 q.8 h. 6. We await the findings at surgery.
[2016-08-29] MEDS: Clindamycin Inj 900 MG in IV Premix 1 EACH IV SCH (18:41)
[2016-08-29] MEDS ORDERED: Ondansetron 2 mg/mL 2 mL Inj ONE (19:03)
[2016-08-29] MEDS ORDERED: Propofol 10,000 mCg/mL 20 mL Inj ONE (19:03)
[2016-08-30] MEDS: Sodium Chloride LOK Flush 10 mL Syringe IVFLUSH SCH ×3 (00:16→17:53)
--- NOTE | 2016-08-30 00:53 | OP ---
[address] [address] OPERATIVE REPORT PATIENT: PITER ENGLE : 1970 MR#: [id number] ADMIT: 08/29/2016 JOB ID: [id number] DATE OF SURGERY: 08/29/2016 PREOPERATIVE DIAGNOSIS(ES): Necrotizing left breast infection. POSTOPERATIVE DIAGNOSIS(ES): Necrotizing left breast infection. PROCEDURE: 1. Excisional debridement skin and subcutaneous tissue, left breast, 20 x 20 cm. 2. Incision and drainage of multiple subcutaneous abscesses. SURGEON: Pablito Lott MD. CLINICAL RESEARCH MANAGEMENT ASSOCIATE: Disha Aponte PA-C. INDICATIONS: A 46-year-old female who presented with sepsis and acute renal failure. She has a large necrotizing infection of her left breast with the skin of approximately half of the superior and lateral breast all necrotic. There was pus draining from the wound. She was started on broad-spectrum antibiotics. Her initial creatinine was 5.87. A repeat after some hydration and starting antibiotics is 4.49. Her potassium is 5.0. after discussing options with the patient, elected to proceed to the operating room for incision and drainage of multiple subcutaneous abscesses and excisional debridement of skin and subcutaneous tissue. FINDINGS: As stated above, the skin over the superior and lateral half of her breast was all necrotic. It basically formed an eschar. I excised that as well as some underlying fatty tissue and submitted both for culture, but also to Pathology. My overriding sense of this is that it is infectious and not neoplastic. There are numerous superficial thrombosed vessels and trapped within folds of fat were pools of pus, but after elevating and debriding sharply the skin and then irrigating it, the wound actually looked significantly better. DESCRIPTION OF PROCEDURE: At the beginning and end of the operation, the SCOAP checklist was completed. An LMA anesthetic was induced by Dr. Bg Srinivasan. Using Betadine, her left breast and upper extremity were prepped and draped in usual fashion. Photographs were taken. As stated above, the wound was 20 x 20 cm. Using scissors, I sharply debrided necrotic skin and subcutaneous tissue, and then also as stated above, tissue as well as possible were sent for culture and to Pathology. Hemostasis as necessary was achieved with cautery. I then thoroughly irrigated the wound with about a liter of saline. The wound was then covered with Adaptic, fluffs and ABDs, and a postoperative "bra" which opens in the front was then placed. The estimated blood loss was probably 50 cc. Specimens are as described above. There were no apparent complications. The final sponge, needle and instrument counts were announced as correct and she was returned to recovery room in stable condition. Critical assistance was provided by Disha Aponte PA-C.
[2016-08-30] MEDS: Clindamycin Inj 900 MG in IV Premix 1 EACH IV SCH ×3 (01:57→17:53)
--- NOTE | 2016-08-30 03:12 | CONS ---
[address] [address] CONSULTATION REPORT PATIENT: PITER ENGLE : 1970 MR#: [id number] ADMIT: 08/29/2016 JOB ID: [id number] DATE OF SERVICE: REQUESTING PHYSICIAN: Jory Enamorado DO. REASON FOR CONSULTATION: Management of abnormal kidney function. CHIEF COMPLAINT: Malaise. HISTORY OF PRESENT ILLNESS: This is a 46-year-old lady without significant past medical history who came in because of malaise. The symptoms started approximately one week prior to the admission. She reports having nausea, vomiting, fatigue, malaise, fever, poor appetite. She has noticed skin lesion and drainage with foul-smell discharge from the left breast. The patient reports having good health in general. She does not use any medications on regular basis. However, over the past one week, she has taken ibuprofen multiple times per day and each time she takes at least two pills. She reports having a poor appetite and some weight loss. The patient does not use any illicit drugs. She has not worked for at least five years. 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 Upon arrival, her initial vitals showed temperature of 36.4, pulse of 109, respiratory rate of 16, blood pressure 118/72. She had extensive workup for sepsis. Blood culture and urine culture was done as well as the wound culture from the left breast. CT of the chest, abdomen and pelvis without contrast was performed, apparently showed diffuse soft tissue edema and skin thickening of the left breast, differential diagnosis includes inflammatory breast cancer versus mastitis. The patient received IV vancomycin, clindamycin and meropenem overnight. Infectious Disease physician and general surgeon were consulted for further management. Kidney-moncada, patient is not aware of having kidney disease. Her initial blood work showed a BUN of 99, creatinine of 5.87. The initial workup did not show any evidence of hydronephrosis. CAT scan showed normal kidney size without nephrolithiasis or hydronephrosis. The patient received IV fluid overnight. Her current fluid is normal saline run at 150 cc/hour. PAST MEDICAL HISTORY: None. SURGICAL HISTORY: None. FAMILY HISTORY: No kidney disease in the family. No cancer in the family.. SOCIAL HISTORY: She is an active smoker. She smokes one pack per day for at least 25 years. She is unemployed. She takes care of her disabled boyfriend. ALLERGIES: No known drug allergies. MEDICATIONS: Ibuprofen 2-3 pills every 4-6 hours over the past one week or so. REVIEW OF SYSTEMS: A 14-point review of systems was performed. PHYSICAL EXAMINATION: Vitals: Temperature 36.6, pulse 88, respiratory rate 15, blood pressure 104/61, O2 sat 97% on 12 L nasal cannula. General appearance: Awake, alert, oriented x3. In on acute distress. Malaise. HEENT: No pallor. No jaundice. No JVD. No lymphadenopathy. No thyroid enlargement. Atraumatic. Dry mucous membranes. Neck is supple. No lymphadenopathy, no thyroid enlargement. Heart: Regular rhythm. Normal S1, S2. No murmurs, rubs or gallops. Tachycardic. Lungs: Clear to auscultation bilaterally. No wheezing. No rhonchi. Breasts: Positive open wound on the right breast, measures 1 x 1 cm, multiple open wounds on the left breast measures 2 x 2 cm with foul smell discharge, purulent discharge noted. Abdomen: Soft, nontender, nondistended. No hepatosplenomegaly. Extremities: No edema, cyanosis or clubbing of fingers. Lower extremity positive for open wound noted on both thigh measures 2 x 2 cm. No active bleeding or discharge. LABORATORIES: Sodium 131, potassium 4.9, chloride 91, bicarb 18, BUN 99, creatinine 5.87. Hemoglobin 11.9, WBC 23.8, platelets 319. UA: Specific gravity 1.015, protein 30, RBC 3-10, WBCs 6-10, urine creatinine 77, urine protein 41. CT chest, abdomen and pelvis showed diffuse soft tissue edema and skin thickening of the left breast, differential diagnosis includes inflammatory breast cancer versus mastitis, trace right pleural effusion, bilateral atelectasis, 1 cm right thyroid nodule, small gallstones. Breast ultrasound showed soft tissue edema, skin thickening with dilated and indistinct duct noted containing hypoechoic fluid with low level echoes suggestive of mastitis. Chest x-ray showed left basilar atelectasis versus aspiration or pneumonia. ASSESSMENT: 1. Acute kidney injury, unknown baseline serum creatinine. She came in with a BUN of 99, creatinine of 5.87. Her initial urine showed mild proteinuria with urine protein creatinine ratio of 0.53, mild hematuria, of note the patient had Win catheter placement. She came in with the complaint of malaise, weakness, nausea, vomiting and discharge from the left breast. Of note, she has been taking ibuprofen over the past week. The etiology of acute kidney injury at this point could be due to acute tubular necrosis from ongoing infection, nonsteroidal anti-inflammatory drugs and ischemic acute tubular necrosis from hypotension and poor oral intake. However, we need to rule out underlying disease of vasculitis given the active urine sediment. I will order a hepatitis profile, FRENCH, ANCA, anti-GBM antibody, complement 3, complement 4. HIV has been ordered and results pending. 2. Hyperkalemia. 3. Left breast skin and soft tissue infection, differential diagnosis: infection and inflammatory malignancy. 4. Hypoalbuminemia and elevation of alkaline phosphatase. 5. Multiple open wounds noted on the right breast, bilateral lower extremities. PLAN: At this point, we will continue supportive treatment. No urgent dialysis indicated. I would like to avoid giving vancomycin since she already in severe renal insufficiency. We will continue hydrating the patient with normal saline running at 150 cc/hour. As mentioned earlier, will also order vasculitis workup including FRENCH, ANCA, complement 3, complement 4, anti-GBM, hepatitis panel and HIV. I will repeat another UA in the morning to follow up on urine sediment. We need to avoid giving her any nephrotoxins. No NSAID use. No IV contrast. Thank you for the consultation. We will monitor along with you. MTDD
[2016-08-30 03:39] VITALS: BP 97/57; PULSE 86; RESP 16; O2SAT 96
[2016-08-30 04:11] LABS: Mean Corpuscular Hemoglobin 29.3 pg (27.0-35.0); Mean Corpuscular Volume 82.8 fL (81-100); Platelet Count 254 bil/L (150-400)
[2016-08-30 04:29] LABS: Phosphorus 6.8 mg/dL (2.5-4.9)
[2016-08-30 04:37] LABS: BASOPHILS % (AUTO) 1 % (0-3); EOSINOPHILS % (AUTO) 2 % (0-5); MONOCYTES % (AUTO) 6 % (4-12); NEUTROPHILS % (AUTO) 84 % (40-74)
[2016-08-30] MEDS: HYDROmorphone 0.5 mg/0.5 mL iSecure Syringe IVPUSH PRN (06:28)
--- NOTE | 2016-08-30 06:42 | NUR ---
pain pt c/o pain in her left breast/chest/back area, IV 0.5mg dilaudid given x2 with good relief, repostiting pt in bed to help with back pain, dsg in take still.
[2016-08-30] MEDS: 0.9% Sodium Chloride 1,000 ML IV SCH ×2 (07:33→13:33)
[2016-08-30 08:26] VITALS: BP 97/51; PULSE 96; RESP 18; O2SAT 91
[2016-08-30] MEDS: Meropenem Inj 1,000 MG in 0.9% Sodium Chloride 50 ML IV SCH (08:53)
[2016-08-30 10:04] VITALS: PULSE 92
--- NOTE | 2016-08-30 11:20 | PROG NOTE ---
[address] [address] PROGRESS NOTE PATIENT: PITER ENGLE : 1970 MR#: [id number] ADMIT: 08/29/2016 JOB ID: [id number] DATE: 08/30/2016 INFECTIOUS DISEASE FOLLOW UP NOTE: REASON FOR FOLLOWUP: Necrotizing left breast infection with less severe infection of right breast and bilateral mid thigh. INTERVAL HISTORY: Overnight, the patient reports she has been free of fevers and chills. She states her left breast pain has subsided considerably after the debridement by Dr. Lott which was performed yesterday. She has no significant cough, shortness of breath or chest pain. She states she has some episodic right upper quadrant pain which has not been severe. No nausea, vomiting, or diarrhea. No new skin lesions. We again reviewed her drug history and she denied the use of meth or any injections into her breast or thighs. PHYSICAL EXAMINATION: Reveals a more comfortable woman than yesterday when she appeared quite ill. She is sitting up and more lucid today. She has a large dressing present over her left breast from her debridement yesterday. She has been afebrile. Temperature now 37.3, pulse 92, respiratory rate 18, blood pressure 97/51, saturating 91% on room air. The patient is awake and lucid. Oral cavity negative. No pharyngitis. Lungs clear. Cardiac tones without murmur and regular. Left breast as mentioned is heavily bandaged and there is a bra holding the dressings all in place so I did not remove it. Abdomen: Soft and nontender including the right upper quadrant. The lower extremities are notable for their symmetrical lesions in both mid thighs which are about 2 cm round, erythematous lesions with a central area of eschar. LABORATORIES: Include a white count which is 21,000 today down from 23 yesterday. Still with left shift, including metamyelocytes and myelocytes. Platelets stable 254. Creatinine 3.29 which is improved from yesterday's 4.49. GGT is 254 and alk phos 379, both quite elevated. AST and ALT are normal. Albumin 2.1. Procalcitonin yesterday 7.4, not repeated today. Urine tox screen was positive for amphetamines which the patient adamantly denies using. HIV and hep C negative. Streptozyme positive at 264. One of four admission blood cultures is growing a gram-negative catherine which appears to be Proteus and will have susceptibilities tomorrow. Gram stains from the breast have consistently showed gram-positive cocci and we await potential growth of those cultures. IMAGING: The CT of the abdomen and pelvis showed small gallstones and a distended gallbladder. IMPRESSION: This is a bit of a confusing case of a woman who presents with bilateral breast and thigh infections. One would think this would all be secondary to injection as there is little other explanation for a completely symmetrical set of infections such as this, but the patient adamantly denies it. She also denies using meth but has a positive tox screen for amphetamine. In any event, the patient had a necrotizing infection of the left breast that was debrided by Dr. Lott yesterday and I have discussed this procedure in detail with him. We have evidence that strep are involved as she has a positive ASO titer and we also have Gram stains, both pre and during the debridement, which showed GPCs confusingly, we also have gram-negative rods in her blood which do not seem to make much sense in terms of what is going on with her left breast. Her LFTs are elevated suggesting a cholestatic hepatitis or gallbladder process, however, and I wonder if she could have acalculous cholecystitis with bacteremia in addition to whatever is going on in her left breast. RECOMMENDATIONS: 1. Continue with current broad antibiotics which include high-dose clindamycin IV, daptomycin IV and meropenem. 2. Right upper quadrant ultrasound has been ordered. to better evaluate the possibility of acalculous or calculous cholecystitis as a cause of her bacteremia. 3. We await the results of the urine culture but this has been negative and her urinalysis did not show any significant pyuria so I do not think that the Proteus is secondary to urinary tract infection, though again, the urine culture will be the final determinate on that. Note this case discussed in detail both yesterday afternoon and this morning with Dr. Lott of General Surgery.
--- NOTE | 2016-08-30 11:43 | PCM.PNMED ---
Subjective Date of Service Aug 30, 2016 Subjective Patient is a 46-year-old female with no reported significant past medical history presenting with a host of non-specific symptoms including chills, nausea , emesis, fatigue, sore throat and myalgias. In the ED, the patient was found to have significant soft tissue infection of the left breast with purulent and malodorous discharge. The patient reports the breast only started being painful and draining over the past few days. Today is hospital day 2. Today: She states that she is feeling better today than yesterday. She has left flank pain. Her breast pain is well controlled right now. She denies fever, chills, cough, abdominal pain, nausea, vomiting, or diarrhea. She denies history of abdominal pain after meals. Pt reports that she has taken Adderall in the past but not recently and denies any illicit drug use. She reports a history of being homeless in the past. Exam Vital Signs Vital Sign - Last Date Time Temp Pulse Resp B/P Pulse Ox O2 Delivery O2 Flow Rate FiO2 08/30/16 10:04 92 08/30/16 08:26 37.3 18 97/51 91 Room Air 08/30/16 03:39 2.00 Intake and Output 08/29/16 08/29/16 08/30/16 Cumulative From/Thru 15:00 23:00 07:00 08/29/16 00:47 - 08/30/16 06:32 Intake Total 2081 ml 2018 ml 5707 ml Output Total 1650 ml 2150 ml Balance 2081 ml 368 ml 3557 ml Intake Oral 300 ml 300 ml IV Total 2081 ml 1718 ml 5407 ml Output Urine Total 1650 ml 2150 ml Exam General: No acute distress, well-developed, well-nourished, appropriately interactive HEENT: Normocephalic, atraumatic. External ears without defect. Pupils equal, round, and reactive to light. Anicteric sclerae, moist conjunctivae, and no lid lag. Oropharynx free of erythema and cobble stoning. Mucosa pink but dry. Neck: Supple. No lymphadenopathy or thyromegaly. Cardiovascular: Regular rate and rhythm with no murmurs, rubs, or gallops appreciated Pulmonary: Clear to auscultation bilaterally with no crackles, wheezes, or rhonchi. Normal respiratory effort with no use of accessory muscles. Abdomen: Mild abdominal tenderness in right upper quadrant. Bowel tones present. Soft, nondistended. No hepatosplenomegaly or masses appreciated. Extremities: No clubbing, cyanosis, edema, or lymphadenopathy appreciated. Skin: Left and right breast wound dressing intact without any visible drainage on bandage. Bilateral thighs with symmetrical mild erythematous, open wounds with eschars about 3-4 cm; no palpable fluctuance. Mild improvement of erythema of bilateral thigh lesions compared to yesterday. Normal temperature, turgor, and texture. Neurological: Cranial nerves grossly intact. Psychiatric: Emotional. Alert and oriented to person, place, and time. Genitourinary: Win catheter in place. IVs and Medications Medications Reviewed: Medications were reviewed in detail Lab and Diagnostics Result Diagram: 08/30/1639908/30/16399 X-Rays, CTs and MRIs Ultrasound breast - left Exam date: 08/29/2016 Impression: Mastitis vs inflammatory carcinoma in the right clinical setting. Mammographic correlation advised. No discrete loculated fluid collection or abscess seen. An irregular hypoechoic lesion noted on image 19, somewhat suspicious Radiologist: Yancy Lawrence MD CT Chest abdomen and pelvis without IV contrast Exam date: 08/29/2016 Impression: Left breast tissues enlarged and edematous with irregular skin thickening and relative increase fibroglandular tissue. Nodular area noted in the inferomedial left breast, 1.5 cm on image 37/2, equivocal. No associated adenopathy. Small pleural effusions. Radiologist: Yancy Lawrence MD PROCEDURE: CT CHEST, ABDOMEN AND PELVIS WITHOUT CONTRAST IMPRESSION: 1. There is diffuse soft tissue edema and skin thickening of the left breast. Differential diagnosis include inflammatory breast cancer versus mastitis. Recommend clinical correlation follow. 2. Trace right pleural effusion. Bibasilar atelectasis. 3. A 1 cm right thyroid nodule. Recommend ultrasound followup. 4. ? Small gallstones. 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 Approved by: Beronica Tijerina M.D. on 08/29/2016 at 9:39 PROCEDURE: X-RAY CHEST ONE VIEW, PORTABLE IMPRESSION: Left basilar atelectasis versus aspiration or pneumonia. Approved by: Beronica Tijerina M.D. on 08/29/2016 at 9:49 Assessment & Plan Patient is a 46-year-old female with no reported significant past medical history presenting with a host of non-specific symptoms including chills, nausea , emesis, fatigue, sore throat and myalgias. Today is hospital day 1. 1. Severe Sepsis. Present on admission. Active -Met criteria with WBC (23.8), HR (109) with source of infection (bilateral breast) and evidence of organ dysfunction (creatinine 5.87) -Patient was febrile 37.8 degrees Celsius yesterday -Procalcitonin elevated at 7.44 -Urinalysis shows negative nitrite, negative leukocyte esterase, and 6-10 white blood cells, 3-10 red blood cells -Blood culture shows gram negative rods, probable proteus -Urine culture no growth at this point -Chest x-ray shows left basilar atelectasis, possible aspiration or pneumonia and CT report shows bibasilar atelectasis -Breast abscess and breast culture have grown beta Streptococcus group A -Continue IV antibiotics of clindamycin, meropenem, and daptomycin per infectious disease -Win discontinued today (08/30/2016) 2. Bilateral breast lesions. Present on admission. Active -Left breast ultrasound and chest, abdomen, and pelvis CT performed -More likely infectious etiology than malignancy -Breast abscess culture and breast culture have grown beta Streptococcus group A -Surgery consulted and following patient, their time and recommendations are appreciated. -Patient had surgery yesterday for debridement of her breasts. -Infectious disease consulted and following patient, their time and recommendations are appreciated. -Patient's urine is positive for amphetamines but denies IV drug use. Pt reports history of taking Adderall but denies illicit drug use. -HIV and hepatitis C negative -MRSA screen pending -Pain control with PO Tylenol and PO [place] 5 mg/325 mg -Continue IV antibiotics of clindamycin, meropenem and daptomycin per infectious disease 3. Acute kidney injury with uremia. Present on admission. Active -Initial BUN 99, Creatinine 5.8 with mild improvement to BUN 77, Creatinine 3.29 -CT without evidence of obstruction -Uncertain etiology. Possibly multifactorial - decreased intake and sepsis and recent increased NSAID intake -Avoid nephrotoxins -Patient on normal saline IV fluids at rate of 150 mL/hour -Nephrology consulted and following patient, their time and recommendations are appreciated. -Streptozyme elevated 4. Bacteremia -Blood culture has grown gram negative rods, likely Proteus -Etiology unknown. Likely related to breast lesions. Breast lesion cultures grew both Streptococcus and gram negative rods. Urine culture shows no growth today -Antibiotics as above 5. Elevated alkaline phosphatase, unknown acuity. Present on admission. Active -Uncertain etiology, possible breast malignancy bone metastasis, gallbladder or liver etiology -CT chest, abdomen and pelvis reads "borderline right-sided hypodensity" of the liver; mild gallbladder distention and possible small gallstones. Abdominal ultrasound shows normal gallbladder -Patient currently denies abdominal pain, nausea, and vomiting. -GGT and total bilirubin elevated -TSH within normal limits -Follow with complete metabolic panel -Abdominal ultrasound performed and preliminary report shows normal gallbladder 6. Bilateral thigh lesions. Present on admission. Improving -Patient believes these are from shaving -Likely, related to patient's breast lesions. -Wound care consulted and following patient, their time and recommendations are appreciated. -Antibiotics as above -Infectious disease consulted and following patient, their time and recommendations are appreciate. 7. Bibasilar atelectasis. Present on admission. Active. -Left basilar atelectasis seen on chest x-ray and bibasilar atelectasis and trace right pleural effusion seen on chest CT scan -Patient is currently receiving IV antibiotics as above -Continue to monitor 8. Tobacco dependence -Continue nicotine patch 9. Positive urine amphetamine -Patient's urine is positive for amphetamines but denies IV drug use. Pt reports history of taking Adderall but denies illicit drug use. Patient started on general diet today. Bowel regimen senna and MiraLAX scheduled and when necessary. Zofran when necessary for nausea and vomiting Patient Status: Patient is being transferred to [facility] for necrotizing infection of breast tissue. Dr. Pablito Lott coordinated the transfer. Accepting physician is Dr. Sadiq Stearns in the surgical service. VTE Prophylaxis: SCDs VTE Mechanical Devices: Intermittant Pneumatic CD Resuscitation Status: CPR: Attempt Resuscitation Attending Statement The patient was seen and examined together with Dr. Fields on 08/30/2016 and I agree with the history, exam and plan as outlined in the note above. . Glenny Fields DO Aug 30, 2016 11:43 Nadeem Espinal MD Aug 31, 2016 08:39 Glenny Fields DO Aug 30, 2016 11:43
--- NOTE | 2016-08-30 11:45 | PCM.PNMED ---
Subjective Date of Service Aug 30, 2016 Subjective She has felt slightly better today with less pain on her left breast. She remains feeling weak and poor appetite. s/p left breast I&D yesterday. Exam Vital Signs Vital Sign - Last Date Time Temp Pulse Resp B/P Pulse Ox O2 Delivery O2 Flow Rate FiO2 08/30/16 10:04 92 08/30/16 08:26 37.3 18 97/51 91 Room Air 08/30/16 03:39 2.00 Intake and Output 08/29/16 08/29/16 08/30/16 Cumulative From/Thru 15:00 23:00 07:00 08/29/16 00:47 - 08/30/16 06:32 Intake Total 2081 ml 2018 ml 5707 ml Output Total 1650 ml 2150 ml Balance 2081 ml 368 ml 3557 ml Intake Oral 300 ml 300 ml IV Total 2081 ml 1718 ml 5407 ml Output Urine Total 1650 ml 2150 ml Exam General appearance: Awake, alert, oriented x3. In on acute distress. Malaise. HEENT: No pallor. No jaundice. No JVD. No lymphadenopathy. No thyroid enlargement. Atraumatic. Dry mucous membranes. Neck is supple. No lymphadenopathy, no thyroid enlargement. Heart: Regular rhythm. Normal S1, S2. No murmurs, rubs or gallops. Lungs: Clear to auscultation bilaterally. No wheezing. No rhonchi. Breasts: Dressing packed into left breast, wearing bra. Abdomen: Soft, nontender, nondistended. No hepatosplenomegaly. Extremities: No edema, cyanosis or clubbing of fingers. Lower extremity positive for open wound noted on both thigh measures 2 x 2 cm. No active bleeding or discharge. Lab and Diagnostics Result Diagram: 08/30/16 0400 08/30/16 0400 X-Rays, CTs and MRIs Ultrasound breast - left Exam date: 08/29/2016 Impression: Mastitis vs inflammatory carcinoma in the right clinical setting. Mammographic correlation advised. No discrete loculated fluid collection or abscess seen. An irregular hypoechoic lesion noted on image 19, somewhat suspicious Radiologist: Yancy Lawrence MD CT Chest abdomen and pelvis without IV contrast Exam date: 08/29/2016 Impression: Left breast tissues enlarged and edematous with irregular skin thickening and relative increase fibroglandular tissue. Nodular area noted in the inferomedial left breast, 1.5 cm on image 37/2, equivocal. No associated adenopathy. Small pleural effusions. Radiologist: Yancy Lawrence MD PROCEDURE: CT CHEST, ABDOMEN AND PELVIS WITHOUT CONTRAST IMPRESSION: 1. There is diffuse soft tissue edema and skin thickening of the left breast. Differential diagnosis include inflammatory breast cancer versus mastitis. Recommend clinical correlation follow. 2. Trace right pleural effusion. Bibasilar atelectasis. 3. A 1 cm right thyroid nodule. Recommend ultrasound followup. 4. ? Small gallstones. 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 Dictated by: Beronica iTjerina M.D. on 08/29/2016 at 9:30 Approved by: Beronica Tijerina M.D. on 08/29/2016 at 9:39 PROCEDURE: X-RAY CHEST ONE VIEW, PORTABLE IMPRESSION: Left basilar atelectasis versus aspiration or pneumonia. Dictated by: Lisandro Sandhu RRA Interpreted: Beronica Tijerina MD on 08/29/2016 at 9:22 Transcribed by: LAYLA on 08/29/2016 at 9:23 Approved by: Beronica Tijerina M.D. on 08/29/2016 at 9:49 Assessment & Plan 1. Acute kidney injury, h/o NSAIDs use over the past week. - (+) active urine sediments. - DDx: ATN due to sepsis and NSAIDs. vasculitic w/u sent, pending results. 2. Hyperkalemia, resolved. 3. Left breast skin and soft tissue infection s/p I&D on 08/29. Gram stain ( +) GPC. 4. GNR bacteremia 5. Hyperphosphatemia due to LIZZIE. will monitor for now. corrected serum calcium 9.4 6. Hypoalbuminemia and elevation of alkaline phosphatase. 7. Multiple open wounds noted on the right breast, bilateral lower extremities. 8. Positive amphetamine from urine tox screen. PLAN: continue supportive treatment. continue NS 150 ml/hr. IV abx as per Dr. Gross. Repeat UA. Avoid nephrotoxins, adjust all meds accordingly to GFR. VTE Prophylaxis: SCDs VTE Mechanical Devices: Intermittant Pneumatic CD Resuscitation Status: CPR: Attempt Resuscitation Kulwinder Vincent MD Aug 30, 2016 11:45
[2016-08-30] MEDS ORDERED: HYDROcodone-APAP 5-325 mg Tablet PO PRN (12:05)
[2016-08-30 12:09] VITALS: BP 102/56; PULSE 94; RESP 18; O2SAT 93
--- NOTE | 2016-08-30 12:16 | DRSVH ---
PROCEDURE: US ABDOMEN, LIMITED ([id number]) INDICATIONS: possible small gallstones on CT, right flank pain TECHNIQUE: Real-time focused scanning was performed of the abdomen, with image documentation. COMPARISON: [facility], CT, CT CHEST ABD PELVIS WO CON, 08/29/2016, 3:15. FINDINGS: Limited examination demonstrates normal appearance of the gallbladder, specifically no visi ble gallstones seen. IMPRESSION: Normal gallbladder. Dictated by: Lisandro SMITH Interpreted: Beronica Tijerina MD on 08/30/2016 at 12:15 Transcribed by: LAYLA on 08/30/2016 at 12:16 Approved by: Beronica Tijerina M.D. on 08/31/2016 at 10:46
[2016-08-30 15:21] LABS: INR 1.08 ratio
[2016-08-30 17:20] VITALS: BP 106/60; PULSE 91; RESP 18; O2SAT 93
--- NOTE | 2016-08-30 19:29 | NUR ---
Transfer Pt transferred to [facility] at 19:00. Report given to emergency medcl emt Cardiac: Pt denies chest pain. Tele SR [id number]. Tele DC'd Resp: Pt denies SOB, but is very drowsy. SPO2 91% on RA this AM, placed on 2L NC, SPO2 up to 96%. Pt back on RA this evening, SPO2 93%. GI/: Pt denies n/v/d, general diet, hurley dc'd. pt urinating on BSC. Neuro: pt is orientated X3, very sleepy this morning pt wakes to name and answers questions then falls back to sleep, Left breast dressing changed with Dr Lott.
--- NOTE | 2016-08-30 19:54 | PCM.DIMED ---
Glenny Fields DO 08/30/16 1954: Discharge Instructions Date of Service Aug 30, 2016 Dates of Hospitalization Aug 29, 2016 at 03:40 Discharge Diagnosis Discharge Diagnosis 1. Severe Sepsis. 2. Bilateral breast lesions. 3. Acute kidney injury with uremia. 4. Bacteremia 5. Elevated alkaline phosphatase 6. Bilateral thigh lesions. 7. Bibasilar atelectasis. 8. Tobacco dependence 9. Positive urine amphetamine Diet No restrictions Activity No restrictions Call your provider Fever or Chills, Shortness of breath, Bleeding, Chest pain, Vomitting, Excessive diarrhea, Weakness (unilateral) Patient Instructions You are transferred to [facility] for further treatment and care of your left breast infection. Follow-up Provider: [facility] Follow-up with PCP in: 1 week (1-2 weeks after patient discharged from [facility]) Nadeem Espinal MD 08/31/16 0840: Discharge Instructions Attending's Statement The patient was seen and examined together with Dr. Fields on 08/30/2016 and I agree with the history, exam and plan as outlined in the note above. . Glenny Fiedls DO Aug 30, 2016 19:54 Nadeem Espinal MD Aug 31, 2016 08:40
--- NOTE | 2016-08-30 20:03 | PCM.DC.MED ---
Discharge Summary Date of Service Aug 30, 2016 Dates of Hospitalization Date of Hospital Admission Aug 29, 2016 at 03:40 Date of Discharge: Aug 30, 2016 Providers: Admitting Physician: Jory Enamorado DO Primary Care Physician: Nopashlee Attending Physician: Jory Enamorado DO Diagnosis at Time of Discharge Diagnosis at Time of Discharge 1. Severe Sepsis. 2. Bilateral breast lesions. 3. Acute kidney injury with uremia. 4. Bacteremia 5. Elevated alkaline phosphatase 6. Bilateral thigh lesions. 7. Bibasilar atelectasis. 8. Tobacco dependence 9. Positive urine amphetamine Procedures XRay, CTs & MRIs Ultrasound breast - left Exam date: 08/29/2016 Impression: Mastitis vs inflammatory carcinoma in the right clinical setting. Mammographic correlation advised. No discrete loculated fluid collection or abscess seen. An irregular hypoechoic lesion noted on image 19, somewhat suspicious Radiologist: Yancy Lawrence MD CT Chest abdomen and pelvis without IV contrast Exam date: 08/29/2016 Impression: Left breast tissues enlarged and edematous with irregular skin thickening and relative increase fibroglandular tissue. Nodular area noted in the inferomedial left breast, 1.5 cm on image 37/2, equivocal. No associated adenopathy. Small pleural effusions. Radiologist: Yancy Lawrence MD PROCEDURE: CT CHEST, ABDOMEN AND PELVIS WITHOUT CONTRAST IMPRESSION: 1. There is diffuse soft tissue edema and skin thickening of the left breast. Differential diagnosis include inflammatory breast cancer versus mastitis. Recommend clinical correlation follow. 2. Trace right pleural effusion. Bibasilar atelectasis. 3. A 1 cm right thyroid nodule. Recommend ultrasound followup. 4. ? Small gallstones. No significant discrepancy with the operation shift supervisor radiology preliminary report. Approved by: Beronica Tijerina M.D. on 08/29/2016 at 9:39 PROCEDURE: X-RAY CHEST ONE VIEW, PORTABLE IMPRESSION: Left basilar atelectasis versus aspiration or pneumonia. Approved by: Beronica Tijerina M.D. on 08/29/2016 at 9:49 Brief History From the history and physical performed by Dr. Jamel Irizarry on 08/29/2016: Patient is a 46-year-old female with no reported significant past medical history presenting with a host of non-specific symptoms including chills, nausea , emesis, fatigue, sore throat and myalgias. Patient says the symptoms started several days ago and persisted. She felt worse today which prompted her to visit [facility] ED for further evaluation. In the ED, the patient was found to have significant soft tissue infection of the left breast with purulent and malodorous discharge. The patient reports the breast only started being painful and draining over the past few days. She reportedly did not notice any abnormalities prior. Her right breast also have a couple of open wounds but significantly less severe compared to the left. The patient endorses associated chest wall pain, headache, weakness, nausea, emesis, mild shortness of breath, and fatigue but otherwise denies diarrhea, constipation, dysuria, abdominal pain. The patient was also discovered to have lesions on her thighs bilaterally. The patient denies any illicit drug use or IV drug use. An ultrasound was performed and reveals inflammatory changes consistent with infection, but no discrete abscess or drainable fluid collection. CT chest, abdomen and pelvis shows edematous and enlarged left breast tissue with irregular skin thickening and increase fibroglandular tissue. The patient was started on meropenem, clindamycin and vancomycin in the ED. Hospital Course Patient is a 46-year-old female with no reported significant past medical history presenting with a host of non-specific symptoms including chills, nausea , emesis, fatigue, sore throat and myalgias. 1. Severe Sepsis, present on admission. Active. -Met criteria with WBC (23.8), HR (109) with source of infection (bilateral breast) and evidence of organ dysfunction (creatinine 5.87) -Patient was febrile 37.8 degrees Celsius yesterday -Procalcitonin elevated at 7.44 -Urinalysis shows negative nitrite, negative leukocyte esterase, and 6-10 white blood cells, 3-10 red blood cells -Blood culture showed gram negative rods, probable proteus -Urine culture showed no growth at this point -Chest x-ray showed left basilar atelectasis, possible aspiration or pneumonia and CT report showed bibasilar atelectasis -Breast abscess and breast culture grew beta Streptococcus group A -Patient was given IV antibiotics of clindamycin, meropenem, and daptomycin per infectious disease -Win discontinued today (08/30/2016) 2. Bilateral breast lesions, present on admission. Active. -Left breast ultrasound and chest, abdomen, and pelvis CT performed -More likely infectious etiology than malignancy -Breast abscess culture and breast culture grew beta Streptococcus group A and gram negative rods -Surgery consulted and following patient, their time and recommendations are appreciated. -Patient had surgery yesterday for debridement of her breasts. -Infectious disease consulted and following patient, their time and recommendations are appreciated. -Patient's urine was positive for amphetamines but denied IV drug use. Pt reported history of taking Adderall but denied illicit drug use. -HIV and hepatitis C were negative -MRSA screen and hepatitis B pending -Pain controlled with PO Tylenol and PO [place] 5 mg/325 mg -Patient had IV antibiotics of clindamycin, meropenem and daptomycin per infectious disease -Patient transferred to [facility] for necrotizing fasciitis and for further surgical care there 3. Acute kidney injury with uremia, present on admission. Active. -Initial BUN 99, Creatinine 5.8 with mild improvement to BUN 77, Creatinine 3.29 -CT without evidence of obstruction -Uncertain etiology. It was possibly multifactorial from decreased intake, sepsis, and recent increased NSAID intake. -Avoided nephrotoxins -Patient was on normal saline IV fluids at rate of 150 mL/hour -Nephrology consulted and following patient, their time and recommendations are appreciated. -Streptozyme elevated 4. Bacteremia, present on admission. Active. -Blood culture had grown gram negative rods, likely Proteus -Etiology unknown. It was likely related to breast lesions. Breast lesion cultures grew both Streptococcus and gram negative rods. Urine culture showed no growth today -Antibiotics as above 5. Elevated alkaline phosphatase, unknown acuity, present on admission. Active. -Uncertain etiology, possible breast malignancy bone metastasis, gallbladder or liver etiology -CT chest, abdomen and pelvis reads "borderline right-sided hypodensity" of the liver; mild gallbladder distention and possible small gallstones. Abdominal ultrasound showed normal gallbladder -Patient currently denied abdominal pain, nausea, and vomiting. -GGT and total bilirubin elevated -TSH within normal limits -Followed with complete metabolic panel -Abdominal ultrasound performed and preliminary report showed normal gallbladder 6. Bilateral thigh lesions, present on admission. Improving. -Patient believes these are from shaving -Likely, related to patient's breast lesions. -Antibiotics as above -Infectious disease consulted and following patient, their time and recommendations are appreciate. 7. Bibasilar atelectasis, present on admission. Active. -Left basilar atelectasis seen on chest x-ray and bibasilar atelectasis and trace right pleural effusion seen on chest CT scan -Patient received IV antibiotics as above 8. Tobacco dependence -Patient was given nicotine patch 9. Positive urine amphetamine -Patient's urine was positive for amphetamines but denied IV drug use. Pt reported history of taking Adderall but denies illicit drug use. Exam Vital Signs (Last) Date Time Temp Pulse Resp B/P Pulse Ox O2 Delivery O2 Flow Rate FiO2 08/30/16 17:20 36.8 91 18 106/60 93 Room Air 08/30/16 03:39 2.00 Exam General: No acute distress, well-developed, well-nourished, appropriately interactive HEENT: Normocephalic, atraumatic. External ears without defect. Pupils equal, round, and reactive to light. Anicteric sclerae, moist conjunctivae, and no lid lag. Oropharynx free of erythema and cobble stoning. Mucosa pink but dry. Neck: Supple. No lymphadenopathy or thyromegaly. Cardiovascular: Regular rate and rhythm with no murmurs, rubs, or gallops appreciated Pulmonary: Clear to auscultation bilaterally with no crackles, wheezes, or rhonchi. Normal respiratory effort with no use of accessory muscles. Abdomen: Mild abdominal tenderness in right upper quadrant. Bowel tones present. Soft, nondistended. No hepatosplenomegaly or masses appreciated. Extremities: No clubbing, cyanosis, edema, or lymphadenopathy appreciated. Skin: Left and right breast wound dressing intact without any visible drainage on bandage. Bilateral thighs with symmetrical mild erythematous, open wounds with eschars about 3-4 cm; no palpable fluctuance. Mild improvement of erythema of bilateral thigh lesions compared to yesterday. Normal temperature, turgor, and texture. Neurological: Cranial nerves grossly intact. Psychiatric: Emotional. Alert and oriented to person, place, and time. Test 08/29/16 01:20 08/29/16 04:19 08/29/16 06:10 08/29/16 13:40 Lactic Acid Level 1.5mmol/L (0.4-2.0) Lipase 89U/L (13-60) Procalcitonin 7.44ng/mL (0.00-0.08) Thyroid Stimulating Hormone (TSH) 1.020uIU/mL (0.450-4.500) Human Chorionic Gonadotropin, Qual Negative (Negative) Urine Color Dark yellow (YELLOW) Urine Appearance Hazy (CLEAR,HAZY) Urine pH 5.5 (5.0-8.0) Urine Specific [place] 1.015 (1.003-1.035) Urine Protein 30mg/dL (NEG,TRACE) Urine Glucose (UA) Negativemg/dL (NEGATIVE) Urine Ketones Negativemg/dL (NEGATIVE) Urine Occult Blood Small (NEGATIVE) Urine Nitrite Negative (NEGATIVE) Urine Bilirubin Negative (NEGATIVE) Urine Urobilinogen Normalmg/dL (NORMAL) Urine Leukocyte Esterase Negative (NEGATIVE) Urine RBC 3-10/hpf (0-2) Urine WBC 6-10/hpf (0-5) Urine Epithelial Cells Few/hpf (NONE-MOD) Urine Crystals Amorphous urates (NONE Urine Bacteria None/hpf (NONE-FEW) Urine Hyaline Casts None/lpf (NONE) Urine Granular Casts None seen (NONE SEEN) Urine Waxy Casts None seen (NONE SEEN) Urine Red Blood Cell Casts None seen (NONE SEEN) Urine White Blood Cell Casts None seen (NONE SEEN) Urine Mucus None seen (None Seen) Urine Trichomonas None seen (NONE SEEN) Urine Yeast None (NONE SEEN) Urine Culture Reflexed Indicated Urine Random Creatinine 77mg/dL (15-278) Urine Random Total Protein 41mg/dL (0-15) Urine Random Sodium 0.53mEq/L Urine Opiates Screen Negative Urine Methadone Screen Negative Urine Barbiturates Screen Negative Urine Amphetamines Screen Positive Urine Benzodiazepines Screen Negative Urine Cocaine Metabolite Screen Negative Urine Cannabinoids Screen Negative Gamma Glutamyl Transpeptidase 254IU/L (0-60) Hepatitis C Antibody <0.1s/co ratio (0.0-0.9) HIV (1&2) Ag and Ab, 4th Generation Non reactive (Non Reactive) Streptozyme 264.3IU/mL (0.0-200.0) Test 08/30/16 04:00 08/30/16 14:52 White Blood Count 21.7th/mm3 (3.8-10.1) Red Blood Count 3.55mil/mm3 (3.90-5.20) Hemoglobin 10.4g/dL (12.0-15.6) Hematocrit 29.4% (35.0-46.0) Mean Corpuscular Volume 82.8fL (81-100) Mean Corpuscular Hemoglobin 29.3pg (27.0-35.0) Mean Corpuscular Hemoglobin Concent 35.4% (32.0-37.0) Red Cell Distribution Width 13.4% (12.3-15.4) Platelet Count 254bil/L (150-400) Neutrophils (%) (Auto) 84% (40-74) Lymphocytes (%) (Auto) 2% (14-46) Monocytes (%) (Auto) 6% (4-12) Eosinophils (%) (Auto) 2% (0-5) Basophils (%) (Auto) 1% (0-3) Band Neutrophils % 3% (1-5) Metamyelocytes % 1% (0-0) Myelocytes % 1% (0-0) Sodium Level 137mEq/L (134-144) Potassium Level 4.9mEq/L (3.5-5.2) Chloride Level 102mEq/L (97-108) Carbon Dioxide Level 18mmol/L (18-29) Blood Urea Nitrogen 77mg/dL (6-24) Creatinine 3.29mg/dL (0.57-1.00) Estimat Glomerular Filtration Rate 22mL/min (>59) Glucose Level 75mg/dL (60-99) Calcium Level 7.9mg/dL (8.5-10.1) Phosphorus Level 6.8mg/dL (2.5-4.9) Total Bilirubin 1.7mg/dL (0.0-1.2) Aspartate Amino Transf (AST/SGOT) 32U/L (0-50) Alanine Aminotransferase (ALT/SGPT) 24U/L (0-32) Alkaline Phosphatase 379U/L (25-150) Total Protein 5.3g/dL (6.4-8.4) Albumin 2.1g/dL (3.4-5.0) Prothrombin Time 11.6sec (8.1-12.5) Prothromb Time International Ratio 1.08ratio Discharge Medications No Active Prescriptions or Reported Meds Followup Plan Discharge Diet: No restrictions Discharge Activity: No restrictions Patient Instructions You are transferred to [facility] for further treatment and care of your left breast infection. Follow-up Provider: [facility] Follow-up with PCP in: 1 week (1-2 weeks after patient discharged from [facility]) Attending Statement The patient was seen and examined together with Dr. Fields on 08/30/2016 and I agree with the history, exam and plan as outlined in the note above. . Glenny Fields DO Aug 30, 2016 20:03 Nadeem Espinal MD Aug 31, 2016 08:41
[2016-08-31] MEDS ORDERED: DAPTOmycin Inj 500 MG in 0.9% Sodium Chloride 50 ML IV SCH (08:30)
--- NOTE | 2016-08-31 10:15 | PATH ---
SURGICAL PATHOLOGY Attending Physician:Floresita Gordon CASE STATUS: Signed Out PATIENT NAME: PITER EGNLE PID: [id number] : 1970 DATE COLLECTED:08/29/2016 00:00 SPECIMEN: Breast Mass, Excision CLINICAL HISTORY: LEFT BREAST ABSCESS 1). LEFT BREAST TISSUE FINAL DIAGNOSIS: Left Breast Abscess Tissue: Abscess. No evidence of malignancy. ICD10: 091.12 GROSS DESCRIPTION: The specimen is received in formalin, labeled with the patient's name, sublabeled as left breast tissue and consists of multiple fragments of yellow-white rubbery friable hemorrhagic tissue (3.3 x 2.1 x 1.5 cm in aggregate) and a piece of mojica-black shiny rubbery fibrous tissue (5.6 x 4.1 x 0.2 cm). The fibrous tissue has a smooth shiny flat surface opposite a mejia-yellow concave surface. Section code: (A) tissue fragments, route sales representative; (B) fibrous tissue, serially sectioned and route sales representative. 08/30/16 ICD-9 CODES: CPT CODES: 53325 Electronically Signed Out Hans Butler MD [facility] [address], [place] [address] Technical component performed at [facility], [address] [place] [address] Ave[address], [place], [address]
[2016-09-01 14:10] LABS: Antiproteinase 3 (PR-3) Abs <3.5 U/mL (0.0-3.5); Perinuclear (P-ANCA) <1:20 titer (Neg:<1:20)
== END 2016-08-30 19:04 | disposition short-term general hospital (02) | DRG 720 ==
LOC: SED 00:42 → PCC 03:40
PROVIDERS: ADMIT Internal Medicine; ATTEND Internal Medicine
PROC: 0HD5XZZ Extraction of Chest Skin, External Approach (ICD-10-PCS; 2016-08-29)
PROC: 0H95XZX Drainage of Chest Skin, External Approach, Diagnostic (ICD-10-PCS; principal; 2016-08-29 12:00)
DX: A41.59 Other Gram-negative sepsis (principal); G93.40 Encephalopathy, unspecified; N17.9 Acute kidney failure, unspecified; J98.11 Atelectasis; F17.210 Nicotine dependence, cigarettes, uncomplicated; N61.1 Abscess of the breast and nipple; R65.20 Severe sepsis without septic shock; B95.0 Streptococcus, group A, as the cause of diseases classified elsewhere; R74.8 Abnormal levels of other serum enzymes

== ENCOUNTER 2016-09-30 17:02 | Emergency (ER) | payer OTHER ==
[2016-09-30 17:34] VITALS: BP 116/75; PULSE 107; RESP 16; O2SAT 98
[2016-09-30] MEDS ORDERED: 0.9% Sodium Chloride 1,000 ML IV ONE (19:53)
[2016-09-30 20:15] LABS: BASOPHILS % (AUTO) 0.5 % (0-3); EOSINOPHILS % (AUTO) 0.8 % (0-5); MONOCYTES % (AUTO) 7.1 % (4-12); Mean Corpuscular Hemoglobin 29.2 pg (27.0-35.0); Mean Corpuscular Volume 89.4 fL (81-100); NEUTROPHILS % (AUTO) 70.7 % (40-74); Platelet Count 379 bil/L (150-400)
--- NOTE | 2016-09-30 20:23 | ED.REPORT ---
HPI-Rash / Abscess Date of Service Sep 30, 2016 ED Provider: Peter Phelps PA-C Guera is a 46-year-old female with a recent history of severe sepsis, group a strep cellulitis, necrotizing fasciitis and skin graft who presents to emergency department for a wound check. She was first seen in this department August 29 diagnosed with severe sepsis. She was transferred to [facility] on August 30 for treatment of suspected necrotizing fasciitis. She was discharged from [facility] September 12 with a skin graft on her left breast. She did not return for follow-up. She presents to the emergency Department for a wound check. She notes that the ondina have not been removed and is becoming red around them. She admits feeling "rundown." She denies fever, chills, sweats, chest pain, palpitations, shortness of breath, wheezing, cough, bowel pain, vomiting, diarrhea. She reports that her pain is mild. She is not any medications other than ondansetron. Nursing Notes Stated Complaint: SKIN GRAFT ON LEFT SIDE, ONDINA ARE HURTING Chief Complaint: Wound Recheck/Suture Removal Nursing Notes Reviewed: Yes Allergies: Coded Allergies: No Known Allergies (Unverified , 09/30/16) No Active Prescriptions or Reported Meds General Time Seen by MD: 19:35 Chief Complaint Return visit, cellulitis Past Medical History Past Medical History Notes: No PCP Past Medical History None reported. Past Surgical History None reported. Smoking History Current Every Day Smoker Social History Alcohol Use: "Social" Drug Use: Denies drug use Other Social History: Local resident Ambulatory Status Independent Review of Systems Review of Systems Note: Negative unless stated otherwise in history of present illness Physical Exam General: Well appearing, well developed, well nourished, no acute distress. Head: Atraumatic, normocephalic. Eyes: No scleral icterus or injection. No discharge. Vision grossly intact. ENT: Voice clear, hearing grossly intact. Respiratory: Regular rate and rhythm. Breath sounds present, clear to auscultation and equal bilaterally. No respiratory distress. No increased work of breathing, speaks in complete sentences. Cardiovascular: Tachycardia at approximately 110 bpm with regular rhythm, without murmur, gallop or rub. No pedal edema. Gastrointestinal: Abdomen flat and non-tender without guarding or rebound. Bowel sounds normoactive. Skin: Pale, Warm and dry. Right breast: 1 cm draining lesion at approximately 10:00 from the nipple. Left wrist: Sensitive area of erythema surrounding healing incisions consistent with a skin graft. Numerous ondina are still in place. There are purulent lesions approximately 3 and 5:00 to the nipple Left leg: Approximately 20 cm by 4 cm rectangular patch erythema, containing thick scale and bleeding excoriation. Surrounded by several smaller geometric areas similar. Apparent site of graft harvesting. No evidence of purulent discharge. Neurological: Grossly nonfocal. Psychological: Alert and oriented. Speech appropriate, linear and logical. Behavior appropriate. Initial Vital Signs Vital Signs (First) Date Time Temp Pulse Resp B/P Pulse Ox O2 Delivery O2 Flow Rate FiO2 09/30/16 17:34 37.2 107 16 116/75 98 Room Air Initial VS: Reviewed, Vital signs abnormal (tachycardia) Interpretation & Diagnostics Lab Results Interpretation Result Diagram: 09/30/16200109/30/162001 Test 09/30/16 20:02 White Blood Count 9.9th/mm3 (3.8-10.1) Red Blood Count 3.49mil/mm3 (3.90-5.20) Hemoglobin 10.2g/dL (12.0-15.6) Hematocrit 31.2% (35.0-46.0) Mean Corpuscular Volume 89.4fL (81-100) Mean Corpuscular Hemoglobin 29.2pg (27.0-35.0) Mean Corpuscular Hemoglobin Concent 32.7% (32.0-37.0) Red Cell Distribution Width 14.4% (12.3-15.4) Platelet Count 379bil/L (150-400) Neutrophils (%) (Auto) 70.7% (40-74) Lymphocytes (%) (Auto) 20.6% (14-46) Monocytes (%) (Auto) 7.1% (4-12) Eosinophils (%) (Auto) 0.8% (0-5) Basophils (%) (Auto) 0.5% (0-3) Sodium Level 135mEq/L (134-144) Potassium Level 4.1mEq/L (3.5-5.2) Chloride Level 97mEq/L (97-108) Carbon Dioxide Level 25mmol/L (18-29) Blood Urea Nitrogen 9mg/dL (6-24) Creatinine 0.55mg/dL (0.57-1.00) Estimat Glomerular Filtration Rate 171mL/min (>59) Glucose Level 94mg/dL (60-99) Calcium Level 9.2mg/dL (8.5-10.1) Total Bilirubin 0.2mg/dL (0.0-1.2) Aspartate Amino Transf (AST/SGOT) 32U/L (0-50) Alanine Aminotransferase (ALT/SGPT) 29U/L (0-32) Alkaline Phosphatase 263U/L (25-150) C-Reactive Protein 3.8mg/dL (0.0-0.5) Total Protein 7.5g/dL (6.4-8.4) Albumin 3.7g/dL (3.4-5.0) Hold Carvalho Top Tube Received (Received) Re-Eval/Medical Decision Med Decision/Clinical Course I discussed this case with Dr. Lobo who met with and examined the patient. He feels that she should be transferred to [facility] to be seen by plastic surgery. 46-year-old female first seen in this department approximately a month ago with sepsis secondary to the infection in her breast. Transferred the next day to [facility] out of concern for necrotizing fasciitis. Surgery was performed and a skin graft placed. She was discharged from [facility] September 12. She failed to present to her follow-up appointments because her car broke down. She is in the emergency department now because the skin around the ondina is becoming red. Denies systemic symptoms. Physical examination reveals evidence of infection in the graft. She is mildly tachycardic. She does not appear to be septic. CMP reveals alkaline phosphatase elevated at 263. C-reactive protein is 3.8. CBC reveals only mild anemia. At this point I am not very concerned about systemic infection however there is some indication of an abscess that will need to be treated surgically. I discussed the case with Dr. Galo at [facility] plastic. She agreed to evaluate the patient. Dr. Beth arranged [facility] transfer Consultation : Note: Discussed the case with Dr. Galo, [facility] plastic. She agrees to assess the patient emergency department at [facility]. Discharge & Departure Impression: Primary Impression: Skin graft (allograft) (autograft) infection Discharge Condition All VS Reviewed: Yes Condition: Stable (ERASED) Referrals: NOPCP (PCP) EDSupervising Provider for APC: Kj Beth MD Attending Statement Discussed patient with ABEBE Phelps and was asked to evaluate patient. Evaluated the Patient Independently and Agree with Plan As above. In Brief, 46-year-old Female with Left Breast Necrotizing Fasciitis recently treated at [facility]. She had a skin graft. She has not been following up and still has ondina in place. She is unsure when she supposed to see them. There is mild erythema and drainage at the base of her breast. Ultrasound shows possible abscess. Patient transferred to [facility] for continuity of care. Discussed with plastic surgeon by ABEBE Phelps. Sent via BLS. Peter Phelps PA-C Sep 30, 2016 20:23 Kj Beth MD Oct 01, 2016 01:46
[2016-09-30 22:00] VITALS: BP 98/63; PULSE 84; RESP 16; O2SAT 100
--- NOTE | 2016-09-30 22:24 | DRSVH ---
PROCEDURE: US BREAST LIMITED SONOGRAM, LEFT INDICATIONS: r/o abscess TECHNIQUE: Real-time focused scanning was performed of the left breast, with image documentation. COMPARISON: [facility], US, US BREAST COMP LT, 08/29/2016, 2:32. [facility], CT, CT CHEST ABD PELVIS WO CON, 08/29/2016, 3:15. FINDINGS: There is a marked decrease in the subcutaneous edema within the left breast when compared w ith the prior ultrasound dated 08/29/16. Multiple subcutaneous ondina are present throughout the left breast consistent with multifocal tissue resection. There is a circumscribed, hypoechoic region with in the left breast at a middle duct at 7:00 4 cm from the nipple which demonstrates macrolobulation a nd a smooth margin. There is posterior acoustic enhancement. IMPRESSION: 1. Postoperative changes and markedly reduced edema when compared with the prior ultrasound dated 01/07. 2. Hypoechoic region at 7:00 in the left breast. It is unclear whether this represents a solid mass s uch as a fibroadenoma or neoplasm, or a complex fluid collection such as abscess, phlegmon, or compli cated cyst. There is no definite internal vascularity and no peripheral hyperemia, as expected with a discrete abscess. For this reason, solid mass versus complicated cyst is favored. Consider biopsy or aspiration of this lesion if clinically indicated. These findings were discussed with Dr. John Graves at 10:21 PM on 09/30/16. Dictated by: Tonya Molina M.D. on 09/30/2016 at 22:11 Approved by: Tonya Molina M.D. on 09/30/2016 at 22:22
[2016-10-01 00:20] VITALS: BP 110/72; PULSE 83; RESP 16; O2SAT 98
== END 2016-10-01 00:33 | disposition short-term general hospital (02) ==
LOC: SED 17:02
DX: T86.822 Skin graft (allograft) (autograft) infection (principal); Y84.8 Other medical procedures as the cause of abnormal reaction of the patient, or of later complication, without mention of misadventure at the time of the procedure; Y93.89 Activity, other specified; Y92.9 Unspecified place or not applicable; Y99.9 Unspecified external cause status; F17.200 Nicotine dependence, unspecified, uncomplicated
CPT/HCPCS: 36415; 76642; 80053; 85025; 86140; 96361; 96374; 99285; J2270; J7030